=== PATIENT | female | born 1945 | race Caucasian/White ===

== ENCOUNTER → 2017-07-30 | Outpatient (CLI) | payer MEDICARE, BC ==
[2015-03-08 15:53] VITALS: BP 132/55
[~2017-07-30] MED LIST: ASPI-482 PO; DIVA500T2 PO; LEVO50TA5 PO; LINA5TAB4 PO; MELO15TA6 PO; OLME20TA19 PO; OMEG500C PO; OXYB10TA PO; OXYC-323 PO; RALO60TA PO; SIMV20TA3 PO
--- NOTE | 2017-07-30 10:57 | RAD ---
Bone densitometry scan, 07/30/2017: History: Osteopenia, postmenopausal evaluation The lumbar spine and right hip were examined utilizing a DEXA technique. The bone mineral density in the lumbar spine as measured from the L1-L4 levels is 1.26 g/sq cm. This yields a T score of 0.7 which is in the normal range. The total T score at the right hip is 0.8, which is also in the normal range. IMPRESSION: Normal bone mineral density measurements.
== END | disposition home or self-care (01) ==
LOC: DXRAD 09:48
PROVIDERS: ATTEND Obstetrics & Gynecology
DX: Z78.0 Asymptomatic menopausal state (principal); M85.80 Other specified disorders of bone density and structure, unspecified site
CPT/HCPCS: 77080

== ENCOUNTER → 2019-02-03 | Outpatient (CLI) | payer MEDICARE, BC ==
[2015-03-08 15:53] VITALS: BP 132/55
[~2019-02-03] MED LIST changes: +OLME20TA17 PO; -OLME20TA19 PO; -OXYC-323 PO; +OXYC1TAB15 PO
--- NOTE | 2019-02-03 14:33 | RAD ---
DATE: 02/03/2019 EXAM: MAMMO SCREENING BILATERAL HISTORY: Routine screening COMPARISON: 10/31/2016 This study was interpreted with the benefit of Computerized Aided Detection (CAD). Breast Density: FATTY The breast parenchyma is primarily fatty replaced. Breast parenchyma level density A. FINDINGS: There are several rim-like opacities in the medial left breast compatible with benign oil cysts. No suspicious breast densities or architectural distortion is seen. Benign type calcifications are present in both breasts. No suspicious microcalcifications have developed. Benign-appearing lymph node type densities are present in the axillary regions. IMPRESSION: There is no mammographic evidence of malignancy in either breast. BI-RADS CATEGORY: 2 BENIGN FINDING(S) RECOMMENDED FOLLOW-UP: 12M 12 MONTH FOLLOW-UP PQRS compliance statement: Patient information was entered into a reminder system with a target due date for the next mammogram. Mammography is a sensitive method for finding small breast cancers, but it does not detect them all and is not a substitute for careful clinical examination. A negative mammogram does not negate a clinically suspicious finding and should not result in delay in biopsying a clinically suspicious abnormality. "Our facility is accredited by the [employer] Mammography Program."
== END | disposition home or self-care (01) ==
LOC: MAMMO 08:58
PROVIDERS: ATTEND Obstetrics & Gynecology
DX: Z12.31 Encounter for screening mammogram for malignant neoplasm of breast (principal); N64.89 Other specified disorders of breast
CPT/HCPCS: 77063; 77067

== ENCOUNTER 2019-12-20 23:15 | Emergency (ER) | payer MEDICARE, BC ==
[~2019-12-20] VITALS: Ht 162.6 cm; Wt 86.0 kg
[~2019-12-20 23:15] MED LIST changes: -OXYB10TA PO; +OXYB10TA26 PO; +SIMV20TA18 PO; -SIMV20TA3 PO
--- NOTE | 2019-12-20 23:58 | PHYS DOC ---
Past History Past Medical History: Diabetes, High Cholesterol, Hypothyroid, Other Additional Past Medical Histor: CHOLECYSITIS Past Surgical History: No Surgical History Alcohol Use: None General Adult EDM: Chief Complaint: MECHANICAL FALL HPI: HPI: Patient is a 74-year-old female who presented to ER today for evaluation of low back pain after she fell in her bedroom this evening. Patient says she was walking into her bedroom getting ready for sleep when she lost her balance and fell down on her buttock, having lower back pain. Patient denies any pelvic pain, no lower extremity pain, no upper back pain, no neck pain, no headache. Patient denied hitting her head. Patient denies any chest pain, no trouble breathing, no nausea vomiting. Patient said when she was on the ground she could not get up herself. Patient is not on any blood thinner. Review of Systems: Review of Systems: Constitutional: Denies fever or chills Eyes: Denies change in visual acuity HENT: Denies nasal congestion or sore throat Respiratory: Denies cough or shortness of breath Cardiovascular: Denies chest pain or edema GI: Denies abdominal pain, nausea, vomiting, bloody stools or diarrhea : Denies dysuria Musculoskeletal: Positive for lower back pain, no joint pain Integument: Denies rash Neurologic: Denies headache, focal weakness or sensory changes Endocrine: Denies polyuria or polydipsia Lymphatic: Denies swollen glands Psychiatric: Denies depression or anxiety Heart Score: Risk Factors: Risk Factors: DM, Current or recent (<one month) smoker, HTN, HLP, family history of CAD, obesity. Risk Scores: Score 0 - 3: 2.5% MACE over next 6 weeks - Discharge Home Score 4 - 6: 20.3% MACE over next 6 weeks - Admit for Clinical Observation Score 7 - 10: 72.7% MACE over next 6 weeks - Early Invasive Strategies Allergies: Allergies: Allergies Coded Allergies Type Severity Reaction Last Updated Verified Penicillins Allergy Intermediate Rash 03/08/15 Yes Physical Exam: PE: Constitutional: Well developed, well nourished, no acute distress, non-toxic appearance. [] HENT: Normocephalic, atraumatic, bilateral external ears normal, oropharynx moist, no oral exudates, nose normal. [] Eyes: PERRLA, EOMI, conjunctiva normal, no discharge. [] Neck: Normal range of motion, no tenderness, supple, no stridor. [] Cardiovascular:Heart rate regular rhythm, no murmur [] Lungs & Thorax: Bilateral breath sounds clear to auscultation [] Abdomen: Bowel sounds normal, soft, no tenderness, no masses, no pulsatile shawn s. [] Skin: Warm, dry, no erythema, no rash. [] Back: There is tenderness to palpation in lumbar area L3/L4 AREA, no CVA tenderness. [] Extremities: No tenderness, no cyanosis, no clubbing, ROM intact, no edema. [] Neurologic: Alert and oriented X 3, normal motor function, normal sensory function, no focal deficits noted. Patient can move all of her extremities without any problem. Psychologic: Affect normal, judgement normal, mood normal. [] Current Patient Data: Vital Signs: Vital Signs Date Time Temp Pulse Resp B/P (MAP) Pulse Ox O2 Delivery O2 Flow Rate FiO2 12/20/19 23:33 98.6 105 18 98/51 (67) 96 Room Air EKG: EKG: [] Radiology/Procedures: Radiology/Procedures: xray of lumbar spine and pelvic xray: no fracture, no dislocation.[] Course & Med Decision Making: Course & Med Decision Making Pertinent Labs and Imaging studies reviewed. (See chart for details) [] Dragon Disclaimer: Dragon Disclaimer: This electronic medical record was generated, in whole or in part, using a voice recognition dictation system. Departure Departure: Impression: Primary Impression: Back pain due to injury Disposition: HOME, SELF-CARE Condition: STABLE Referrals: JESSICA PEOPLES MD (PCP) follow up with your doctor this week as needed for pain. Patient Instructions: Back Pain, Adult JESSICA SHAW DO Dec 20, 2019 23:58
[2019-12-21 00:09] VITALS: BP 120/33
--- NOTE | 2019-12-21 02:10 | RAD ---
Study: 1. CR LUMBAR SPINE 2-3V 2. CR PELVIS Indication: Fall. Lower back pain. Pelvic pain. Comparison: CT abdomen/pelvis 02/16/2015. Lumbar spine MRI 08/06/2018 Findings: Lumbar spine: Mild levocurvature with the apex at L3. 5 nonrib-bearing lumbar vertebral elements. No change in vertebral body height. There is again grade 1 anterolisthesis of L4 on L5. Multilevel facet degeneration appearing greatest at L3-L4 and L4-L5. Mild disc space narrowing lateralized to the right at L3-L4 and lateralized to the left at L4-L5 and also seen at a few additional levels as well. Vascular calcifications. Right upper quadrant surgical clips. Pelvis: Hip alignment is maintained as is alignment across the pubic symphysis and sacroiliac joints. No displaced fracture seen at the proximal femurs or throughout the pelvis. The adequately assessed sacral arcuate lines are continuous. No advanced hip arthrosis. Impression: 1. No acute fracture seen to involve the lumbar spine or pelvis. Hip alignment is maintained. 2. Multilevel lumbar spine degenerative changes that appear most pronounced at L3-L4 and L4-L5. Electronically signed by: FRANCESCA ROMERO MD (12/21/2019 2:07 AM) [id number]
[2019-12-22] MEDS ORDERED: ALLO300T PO (02:09)
[2019-12-22] MEDS ORDERED: GLIP10TA13 PO (02:09)
[2019-12-22] MEDS ORDERED: FEBU40TA PO (02:09)
[2019-12-22] MEDS ORDERED: ATOR40TA59 PO (02:09)
[2019-12-22] MEDS ORDERED: LINA5TAB4 PO (02:55)
== END 2019-12-21 00:30 | disposition home or self-care (01) ==
LOC: ER 23:15
DX: S39.92XA Unspecified injury of lower back, initial encounter (principal); E11.9 Type 2 diabetes mellitus without complications; E78.00 Pure hypercholesterolemia, unspecified; E03.9 Hypothyroidism, unspecified; Z88.0 Allergy status to penicillin; W18.39XA Other fall on same level, initial encounter; Y93.01 Activity, walking, marching and hiking; Y92.89 Other specified places as the place of occurrence of the external cause; Y99.8 Other external cause status
CPT/HCPCS: 72100; 72170; 99284

== ENCOUNTER 2019-12-21 22:18 | Inpatient (IN) | payer MEDICARE, BC ==
[~2019-12-21] VITALS: Ht 162.6 cm; Wt 87.0 kg
--- NOTE | 2019-12-21 22:40 | EKG ---
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
[2019-12-21] MEDS ORDERED: IV NORMAL SALINE 1,000ML 1,000 ML IV ONE (23:15)
--- NOTE | 2019-12-21 23:19 | PHYS DOC ---
Past History Past Medical History: Diabetes, High Cholesterol, Hypothyroid, Other Additional Past Medical Histor: CHOLECYSITIS Past Surgical History: No Surgical History Alcohol Use: None General Adult EDM: Chief Complaint: FEVER HPI: HPI: 74-year-old female presents via EMS with fever, cough, and diarrhea. EMS was using COVID-19 precautions. The patient was seen in this facility yesterday for a fall at home. She was discharged without significant injury. Today she presents with a fever of 101 at home. She is also developed a cough and mild shortness of breath. The patient does not usually use oxygen. The patient has been less alert and able to answer questions than she was yesterday. Most history was obtained from EMS reports and what her spouse told them. She became less lucid throughout the day and had a cough. He noticed that she was running a fever and called EMS. Review of Systems: Review of Systems: Constitutional: Fever Eyes: Denies change in visual acuity HENT: Denies nasal congestion or sore throat Respiratory: Cough with shortness of breath Cardiovascular: Denies chest pain or edema GI: Diarrhea. Denies abdominal pain, nausea, vomiting, bloody stools. : Denies dysuria Musculoskeletal: Denies back pain or joint pain Integument: Denies rash Neurologic: Denies headache, focal weakness or sensory changes Endocrine: Denies polyuria or polydipsia Lymphatic: Denies swollen glands Psychiatric: Denies depression or anxiety Heart Score: Risk Factors: Risk Factors: DM, Current or recent (<one month) smoker, HTN, HLP, family history of CAD, obesity. Risk Scores: Score 0 - 3: 2.5% MACE over next 6 weeks - Discharge Home Score 4 - 6: 20.3% MACE over next 6 weeks - Admit for Clinical Observation Score 7 - 10: 72.7% MACE over next 6 weeks - Early Invasive Strategies Current Medications: Current Meds: Current Medications Medications (Trade) Dose Ordered Sig/Mayte Start Time Stop Time Status Last Admin Dose Admin Acetaminophen (Tylenol) 1,000 mg 1X ONCE 12/21/19 23:30 12/21/19 23:31 Sodium Chloride 1,000 ml @ 1,000 mls/hr 1X ONCE 12/21/19 23:15 12/22/19 00:14 UNV Allergies: Allergies: Allergies Coded Allergies Type Severity Reaction Last Updated Verified Penicillins Allergy Intermediate Rash 03/08/15 Yes Physical Exam: PE: Constitutional: Well developed, well nourished, no acute distress, non-toxic appearance. [] HENT: Normocephalic, atraumatic, bilateral external ears normal, oropharynx moist, no oral exudates, nose normal. [] Eyes: PERRLA, EOMI, conjunctiva normal, no discharge. [] Neck: Normal range of motion, no tenderness, supple, no stridor. [] Cardiovascular:Heart rate regular rhythm, no murmur [] Lungs & Thorax: Bilateral breath sounds clear to auscultation [] Abdomen: Bowel sounds normal, soft, no tenderness, no masses, no pulsatile masses. [] Skin: Warm, dry, no erythema, no rash. [] Back: No tenderness, no CVA tenderness. [] Extremities: No tenderness, no cyanosis, no clubbing, ROM intact, no edema. [] Neurologic: Alert and oriented X 3, normal motor function, normal sensory function, no focal deficits noted. [] Psychologic: Affect normal, judgement normal, mood normal. [] Current Patient Data: Vital Signs: Vital Signs Date Time Temp Pulse Resp B/P (MAP) Pulse Ox O2 Delivery O2 Flow Rate FiO2 12/21/19 22:20 103.1 107 18 135/64 (87) 94 Room Air EKG: EKG: Sinus tachycardia, rate 104, normal axis, no ST elevations or depressions. [] Radiology/Procedures: Radiology/Procedures: [] Impressions: Study: CR CHEST AP ONLY Indication: Fever and cough. Comparison: None. Findings: Low lung volumes. Retrocardiac haziness on the left could be secondary to atelectasis. No large effusion. No pneumothorax. Apparent prominence of the cardiomediastinal silhouette is likely in part related to AP technique and low lung volumes. Impression: Retrocardiac haziness at the basilar left lower lung is nonspecific but could represent atelectasis given low lung volumes. Electronically signed by: FRANCESCA ROMERO MD (12/21/2019 11:52 PM) [id number] DICTATED AND SIGNED BY: FRANCESCA ROMERO MD DATE: 12/21/19 2352 CC: ROSA MARIA CUEVA DO; JESSICA PEOPLES MD ~ Course & Med Decision Making: Course & Med Decision Making Pertinent Labs and Imaging studies reviewed. (See chart for details) On arrival, the patient was satting 92% on room air for EMS. She had a fever of 103. She is alert and oriented to person and time, but not place. She was not able to provide a history to the nurse. We have started a liter normal saline, will not do the full 30 mL/kg at this time as COVID-19 is a probable diagnosis. Once work-up to our monitors, patient's oxygen saturation is 94-96% on room air. Her heart rate is 104. The patient's labs are significant for blood sugar greater than 200, creatinine 2.2 with no previous for comparison, lactic acid 2.7. Troponin is negative. White count is normal. The patient's d-dimer is elevated at 3.77. I would order CT a of the chest, but her GFR is 21. I will leave this decision up to the hospitalist and whether or not a VQ scan would be more appropriate. Given this is possible COVID-19 and I am worried about the potential for coagulation issues, I will give her a standard dose of Lovenox 40 mg. I will admit the patient to the hospital. I spoke with Dr. Peoples about the patient and he has agreed to admission. 64 minutes of critical care time was spent on this patient exclusive of other billable procedures. This includes but is not limited to respiratory droplet precautions, lab review, radiology review, consultations, medication management. Concern for COVID 19 [] Dragon Disclaimer: Dragon Disclaimer: This electronic medical record was generated, in whole or in part, using a voice recognition dictation system. Departure Departure: Impression: Primary Impression: Suspected COVID-19 virus infection Additional Impressions: Fever Qualified Codes: R50.9 - Fever, unspecified Elevated d-dimer Disposition: ADMITTED INPATIENT Admitting Physician: Jessica Peoples Condition: GUARDED Referrals: JESSICA PEOPLES MD (PCP) ROSA MARIA CUEVA DO Dec 21, 2019 23:19
[2019-12-21 23:22] LABS: BASO % 0 % (0-3); EOS % 0 % (0-3); HEMATOCRIT 40.8 % (36.0-47.0); HEMOGLOBIN 13.4 g/dL (12.0-15.5); LYMPH # 0.2 x10^3/uL (1.0-4.8); LYMPH % 4 % (24-48); MEAN CORPUSCULAR HEMOGLOBIN 28 pg (25-35); MEAN CORPUSCULAR HGB CONC 33 g/dL (31-37); MEAN CORPUSCULAR VOLUME 86 fL (79-100); MONO # 0.2 x10^3/uL (0.0-1.1); MONO % 4 % (0-9); NEUT # 4.6 x10^3uL (1.8-7.7); NEUT % 92 % (31-73); PLATELET COUNT 95 x10^3/uL (140-400); RED BLOOD COUNT 4.77 x10^6/uL (3.50-5.40); RED CELL DISTRIBUTION WIDTH 15.5 % (11.5-14.5)
[2019-12-21 23:26] LABS: CALCIUM 8.6 mg/dL (8.5-10.1); CREATININE 2.2 mg/dL (0.6-1.0); GFR 21.9
[2019-12-21] MEDS ORDERED: ACETAMINOPHEN 500 MG TABLET PO ONE (23:30)
[2019-12-21 23:32] LABS: ALBUMIN/GLOBULIN RATIO 0.9 (1.0-1.7); TOTAL BILIRUBIN 0.7 mg/dL (0.2-1.0); TOTAL PROTEIN 6.3 g/dL (6.4-8.2)
--- NOTE | 2019-12-21 23:55 | RAD ---
Study: CR CHEST AP ONLY Indication: Fever and cough. Comparison: None. Findings: Low lung volumes. Retrocardiac haziness on the left could be secondary to atelectasis. No large effusion. No pneumothorax. Apparent prominence of the cardiomediastinal silhouette is likely in part related to AP technique and low lung volumes. Impression: Retrocardiac haziness at the basilar left lower lung is nonspecific but could represent atelectasis given low lung volumes. Electronically signed by: FRANCESCA ROMERO MD (12/21/2019 11:52 PM) [id number]
[2019-12-22] VITALS (12 sets, daily range): BP systolic 88–119; BP diastolic 50–70
[2019-12-22 00:10] LABS: CLARITY,URINE CLEAR; COLOR,URINE YELLOW
[2019-12-22 00:11] LABS: BACTERIA,URINE 0 /HPF (0-FEW); BILIRUBIN,URINE NEG (NEG); GLUCOSE,URINE NEG (NEG); NITRITE,URINE NEG (NEG); RBC,URINE 0 /HPF (0-2); SQUAMOUS EPITHELIAL CELL,UR FEW /LPF; UROBILINOGEN,URINE 0.2 mg/dL (0.2 mg/dL); WBC,URINE OCC /HPF (0-4)
[2019-12-22] MEDS ORDERED: ENOXAPARIN 40 MG/0.4 ML SYRINGE. SQ ONE (00:30)
[2019-12-22] MEDS ORDERED: ONDANSETRON PF 4 MG/2 ML VIAL. IVP PRN (01:00)
[2019-12-22] MEDS ORDERED: GLIP10TA13 PO (02:09)
[2019-12-22] MEDS ORDERED: ATOR40TA59 PO (02:09)
[2019-12-22] MEDS ORDERED: ALLO300T PO (02:09)
[2019-12-22] MEDS ORDERED: FEBU40TA PO (02:09)
[2019-12-22] MEDS ORDERED: LINA5TAB4 PO (02:55)
[2019-12-22] MEDS: ACETAMINOPHEN 325 MG TABLET PO PRN ×2 (08:17→16:36)
[2019-12-22 09:10] LABS: BASO # 0.1 x10^3/uL (0.0-0.2); BASO % 1 % (0-3); EOS % 0 % (0-3); HEMATOCRIT 39.1 % (36.0-47.0); HEMOGLOBIN 12.9 g/dL (12.0-15.5); LYMPH # 0.4 x10^3/uL (1.0-4.8); LYMPH % 7 % (24-48); MEAN CORPUSCULAR HEMOGLOBIN 28 pg (25-35); MEAN CORPUSCULAR HGB CONC 33 g/dL (31-37); MEAN CORPUSCULAR VOLUME 84 fL (79-100); MONO # 0.3 x10^3/uL (0.0-1.1); MONO % 5 % (0-9); NEUT # 5.2 x10^3uL (1.8-7.7); NEUT % 87 % (31-73); PLATELET COUNT 81 x10^3/uL (140-400); RED BLOOD COUNT 4.65 x10^6/uL (3.50-5.40); RED CELL DISTRIBUTION WIDTH 15.5 % (11.5-14.5); WHITE BLOOD COUNT 5.9 x10^3/uL (4.0-11.0)
[2019-12-22 09:23] LABS: ALBUMIN 2.6 g/dL (3.4-5.0); ALBUMIN/GLOBULIN RATIO 0.7 (1.0-1.7); CALCIUM 8.4 mg/dL (8.5-10.1); CREATININE 1.6 mg/dL (0.6-1.0); GFR 31.6; POTASSIUM 3.9 mmol/L (3.5-5.1); TOTAL BILIRUBIN 0.8 mg/dL (0.2-1.0); TOTAL PROTEIN 6.3 g/dL (6.4-8.2)
[2019-12-22] MEDS ORDERED: ENOXAPARIN 40 MG/0.4 ML SYRINGE. SQ SCH (09:30)
[2019-12-22] MEDS: IV NORMAL SALINE 1,000ML 1,000 ML IV SCH ×3 (09:34→20:27)
[2019-12-22] MEDS: LINAGLIPTIN 5 MG TABLET PO SCH (10:00)
[2019-12-22] MEDS: LEVOTHYROXINE 50 MCG TABLET PO SCH (10:32)
[2019-12-22 11:22] LABS: INFLUENZA A PATIENT NEGATIVE (NEGATIVE); INFLUENZA B PATIENT NEGATIVE (NEGATIVE)
--- NOTE | 2019-12-22 11:25 | RAD ---
EXAM: CT Chest without IV contrast INDICATION: Right lower lobe crackles. Atypical pneumonia is suspected. Renal insufficiency. TECHNIQUE: Multi-detector row CT images were acquired from the thoracic inlet through the upper abdomen without the use of IV contrast. Sagittal and coronal images were acquired from the transaxial data. All CT scans performed at this facility utilize dose optimization techniques as appropriate to the exam, including the following: Automated exposure control and adjustment of the mA and/or KV according to patient size (this includes techniques or standardized protocols for targeted exams where dose is indication/reason for exam). COMPARISON: 12/21/2019 chest x-ray FINDINGS: Respiratory motion artifact degrades detail. The absence of IV contrast also limits evaluation of soft tissue pathology. CARDIOVASCULAR: Unremarkable MEDIASTINUM & EMILY: Mild mediastinal adenopathy as evidenced by precarinal 1.4 cm short axis lymph node. LUNGS: Lungs are hypoventilatory and show a mosaic attenuation best appreciated in the right upper lobe. PLEURAL SPACE: No pleural effusions or pneumothorax. OSSEOUS & SOFT TISSUE: Unremarkable ABDOMEN: The visualized portions of the upper abdomen are unremarkable. IMPRESSION: Hypoventilatory chest with respiratory motion that degrades detail but no parenchymal consolidation or clear evidence of an acute infectious process. Recommend clinical correlation and consideration of follow-up. Presence of mosaic attenuation in the lungs could reflect small airways disease. Atypical pneumonia is not excluded based on these imaging findings. Electronically signed by: Catherine Partida MD (12/22/2019 11:22 AM) [id number]
[2019-12-22] MEDS: CEFEPIME HCL 1 GM in IV NORMAL SALINE 50ML 50 ML IV SCH ×2 (13:09→21:52)
[2019-12-22] MEDS: DIVALPROEX SODIUM 250 MG TABLET.DR. PO SCH (20:28)
[2019-12-22] MEDS: IBUPROFEN 200 MG TABLET PO PRN (20:28)
[2019-12-23] VITALS (11 sets, daily range): BP systolic 95–133; BP diastolic 49–65
[2019-12-23] MEDS: IV NORMAL SALINE 1,000ML 1,000 ML IV SCH ×3 (00:30→07:41)
[2019-12-23] MEDS ORDERED: ACETAMINOPHEN 325 MG TABLET PO ONE (01:17)
[2019-12-23] MEDS: ACETAMINOPHEN 325 MG TABLET PO PRN ×3 (01:30→22:43)
[2019-12-23] MEDS: CEFEPIME HCL 1 GM in IV NORMAL SALINE 50ML 50 ML IV SCH (05:33)
[2019-12-23] MEDS: LEVOTHYROXINE 50 MCG TABLET PO SCH (05:34)
[2019-12-23 06:12] LABS: BASO % 0 % (0-3); EOS % 0 % (0-3); HEMATOCRIT 35.3 % (36.0-47.0); HEMOGLOBIN 11.6 g/dL (12.0-15.5); LYMPH # 0.4 x10^3/uL (1.0-4.8); LYMPH % 10 % (24-48); MEAN CORPUSCULAR HEMOGLOBIN 28 pg (25-35); MEAN CORPUSCULAR HGB CONC 33 g/dL (31-37); MEAN CORPUSCULAR VOLUME 84 fL (79-100); MONO # 0.2 x10^3/uL (0.0-1.1); MONO % 4 % (0-9); NEUT # 3.8 x10^3uL (1.8-7.7); NEUT % 86 % (31-73); PLATELET COUNT 56 x10^3/uL (140-400); RED BLOOD COUNT 4.18 x10^6/uL (3.50-5.40); RED CELL DISTRIBUTION WIDTH 15.2 % (11.5-14.5); WHITE BLOOD COUNT 4.4 x10^3/uL (4.0-11.0)
[2019-12-23 06:20] LABS: CALCIUM 7.8 mg/dL (8.5-10.1); CREATININE 1.2 mg/dL (0.6-1.0); POTASSIUM 3.9 mmol/L (3.5-5.1)
[2019-12-23] MEDS: LINAGLIPTIN 5 MG TABLET PO SCH (07:41)
[2019-12-23] MEDS ORDERED: CONTRAST GIVEN MC PRN (08:00)
[2019-12-23] MEDS ORDERED: IOHEXOL 350 MG/ML 100 ML VIAL. IV ONE (08:15)
--- NOTE | 2019-12-23 09:20 | RAD ---
CTA chest abdomen and pelvis with contrast: History: Worsening dyspnea and febrile Axial helical images of the chest abdomen and pelvis were obtained after the administration of 100 cc IV Isovue-370 contrast. Timing is appropriate for arterial evaluation and multiplanar reconstruction was performed on a separate imaging workstation including 3-D maximum intensity. Imaging as well as 3-D arterial surface rendering. Comparison: none CTA OF THE CHEST WITH IV CONTRAST: The thoracic aorta appears normal. The left common carotid artery arises from a common trunk with the brachiocephalic artery. There are a few small mediastinal hilar lymph nodes. There are tiny pleural effusions. There is minimal perihilar groundglass opacities. There is no filling defects in the pulmonary arteries to suggest PE. Impression: 1. Minimal perihilar groundglass opacities is nonspecific and can be pneumonitis or discoid atelectasis. 2. Mild lymphadenopathy likely reactive. 3. Normal thoracic aorta. 4. Mild pleural effusions. End Impression CTA OF THE ABDOMEN AND PELVIS WITH IV CONTRAST: COMPARISON: February 16, 2015 The aorta and great vessels appear normal. There has been prior cholecystectomy. The appendix is not well seen but appears normal. There is a low-density lesion in the right adnexa that measures 5.3 x 4.3 cm. The uterus appears within normal limits. The left ovary is not well seen. Liver: Unremarkable Spleen: Unremarkable Pancreas: Unremarkable Adrenal Glands: Unremarkable Kidneys: Unremarkable Evaluation of stomach and bowel is limited without oral contrast. Lymphadenopathy: no. Free fluid: no. Free air: no. The bladder is collapsed around a [place] and not well evaluated. Impression: Right adnexal lesion is most likely related to the right ovary. This could be a neoplasm. Correlation with CA-125 and follow-up ultrasound as an outpatient. End impression PQRS Compliance Statement: One or more of the following individualized dose reduction techniques were utilized for this examination: 1. Automated exposure control 2. Adjustment of the mA and/or kV according to patient size 3. Use of iterative reconstruction technique Electronically signed by: Enrique Ellsworth III, MD (12/23/2019 9:17 AM) [id number]
[2019-12-23] MEDS: HYDROXYCHLOROQUINE (PROGRAM) 200 MG TABLET PO SCH ×2 (10:53→20:12)
[2019-12-23] MEDS ORDERED: AZITHROMYCIN 250 MG TABLET. PO ONE (11:00)
--- NOTE | 2019-12-23 15:11 | PN ---
DATE: SUBJECTIVE: A 74-year-old female admitted with sepsis. The patient had elevated temperatures up to 103 degrees. She has become basically afebrile, though at times runs a low-grade temperature up to 99. She has been on IV antibiotics, cefepime and Levaquin, but her x-ray or CT scan demonstrated ground glass appearance. A COVID-19 test is pending. We were looking for trying her on Plaquenil. She is on constant monitoring and considering she is still very weak and because of her other risk factors, we will go ahead and patient has agreed to give it a try to help her recover quicker. Her vital signs this morning are much improved. OBJECTIVE: VITAL SIGNS: Her blood pressure did drop yesterday to 96/59, one report later on was 88/50 (NC). In any case, her blood pressure this morning is up to 120/60, respiratory rate 22, pulse 87, temperature 98.5, oxygen saturation good. GENERAL: The patient still feels weak. The patient has poor taste. LUNGS: Diminished primarily in the bases, but basically diminished throughout. CARDIOVASCULAR: Regular sinus rhythm. ABDOMEN: Protuberant, soft. EXTREMITIES: No clubbing, cyanosis or edema. NEUROLOGIC: Intact. LABORATORY DATA: Otherwise, her labs look basically stable except for the platelets, which again show a slight deterioration down to 56,000. Her renal function has markedly improved showing the degree of dehydration. Her creatinine went from 2.2 down to 1.2. Her GFR now is up at 44. Her procalcitonin was elevated at 1.9 and shows close to a very high risk for sepsis, which we have already taking into account as well as continued IV antibiotic therapy on her. Still awaiting the COVID-19 report and will make further evaluation once those are received. She is on the azithromycin presently, she has been on Levaquin and cefepime, which seemed to help her somewhat, but her platelet count still continued to drop, so we will discontinue that. IMPRESSION: Sepsis, pneumonia of unknown etiology, possible SIRS, thrombocytopenia, morbid obesity, acute on top of chronic renal failure. PLAN: Continue to monitor the patient accordingly, make further evaluation on her as indicated per those results. We will continue on the IV Zithromax, try the Plaquenil since she has ground glass appearance, see if this does not help regain her recovery or increase her recovery speed. She is on constant monitoring and EKGs have been done and we will continue to monitor her on these issues as well. JESSICA PEOPLES MD DR: KEY/flex JOB#: [id number] / [id number]
[2019-12-23] MEDS ORDERED: CEFEPIME HCL 1 GM in IV NORMAL SALINE 50ML 50 ML IV SCH (18:00)
[2019-12-23] MEDS: DIVALPROEX SODIUM 250 MG TABLET.DR. PO SCH (20:12)
[2019-12-23] MEDS: LACTOBACILLUS RHAMNOSUS GG 1 CAPSULE. PO SCH (20:12)
--- NOTE | 2019-12-23 23:01 | EKG ---
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
[2019-12-24 00:37] VITALS: BP 99/48
[2019-12-24] MEDS: LEVOTHYROXINE 50 MCG TABLET PO SCH (05:19)
[2019-12-24 06:13] VITALS: BP 106/50
[2019-12-24 06:19] LABS: BASO % 1 % (0-3); EOS % 0 % (0-3); HEMATOCRIT 34.4 % (36.0-47.0); HEMOGLOBIN 11.4 g/dL (12.0-15.5); LYMPH # 0.8 x10^3/uL (1.0-4.8); LYMPH % 23 % (24-48); MEAN CORPUSCULAR HEMOGLOBIN 28 pg (25-35); MEAN CORPUSCULAR HGB CONC 33 g/dL (31-37); MEAN CORPUSCULAR VOLUME 84 fL (79-100); MONO # 0.3 x10^3/uL (0.0-1.1); MONO % 8 % (0-9); NEUT # 2.4 x10^3uL (1.8-7.7); NEUT % 68 % (31-73); PLATELET COUNT 62 x10^3/uL (140-400); RED CELL DISTRIBUTION WIDTH 15.3 % (11.5-14.5); WHITE BLOOD COUNT 3.6 x10^3/uL (4.0-11.0)
[2019-12-24 06:32] LABS: ALBUMIN/GLOBULIN RATIO 0.6 (1.0-1.7); CALCIUM 8.2 mg/dL (8.5-10.1); CREATININE 1.1 mg/dL (0.6-1.0); GFR 48.7; TOTAL BILIRUBIN 0.5 mg/dL (0.2-1.0); TOTAL PROTEIN 5.4 g/dL (6.4-8.2)
[2019-12-24] MEDS: LINAGLIPTIN 5 MG TABLET PO SCH (07:46)
[2019-12-24] MEDS ORDERED: AZITHROMYCIN 250 MG TABLET. PO SCH (09:00)
[2019-12-24] MEDS ORDERED: HYDROXYCHLOROQUINE (PROGRAM) 200 MG TABLET PO SCH (09:00)
[2019-12-24] MEDS: LACTOBACILLUS RHAMNOSUS GG 1 CAPSULE. PO SCH ×2 (09:55→20:41)
[2019-12-24 16:00] VITALS: BP 115/73
[2019-12-24] MEDS: ACETAMINOPHEN 325 MG TABLET PO PRN (17:05)
[2019-12-24 19:30] VITALS: BP 122/65
[2019-12-24] MEDS: DIVALPROEX SODIUM 250 MG TABLET.DR. PO SCH (20:41)
[2019-12-24] MEDS ORDERED: levoFLOXacin PER PHARMACY 1 EACH. MC PRN (20:45)
[2019-12-24 22:10] VITALS: BP 111/58
[2019-12-24] MEDS ORDERED: levoFLOXacin 500 MG TABLET PO ONE (23:00)
--- NOTE | 2019-12-24 23:54 | PN ---
DATE: SUBJECTIVE: A 74-year-old in with sepsis. The patient is resting fairly comfortably, making fairly good progress, still very weak, had spiked one temperature up to 101.5 late last night and again this afternoon (NC). OBJECTIVE: VITAL SIGNS: The patient's blood pressure 115/73, respiratory rate 20, pulse 70. The patient is febrile presently (NC). GENERAL: Otherwise, is alert and oriented. LUNGS: Diminished, but basically clear. CARDIOVASCULAR: Regular sinus rhythm. ABDOMEN: Soft, nontender. EXTREMITIES: No clubbing, cyanosis, nor edema. NEUROLOGIC: Stable. We will go ahead and continue to monitor the patient accordingly. We will add a second antibiotic to her protocol and see if this does not help her with that fever. LABORATORY DATA: Basically, COVID report is not in the chart. Blood sugars are stable. Urine unremarkable. CT abdomen and pelvis just showed some minimal ground glass opacities in the bases consistent with possible pneumonitis. IMPRESSION: Sepsis, pneumonitis, pneumonia, unknown etiology, possible systemic inflammatory response syndrome, thrombocytopenia, morbid obesity, acute on top of chronic renal failure. JESSICA PEOPLES MD DR: KEY/flex JOB#: [id number] / [id number]
[2019-12-25 05:50] VITALS: BP_SYST 115; BP_SYST 55; BP_DIAS 58
[2019-12-25] MEDS: LEVOTHYROXINE 50 MCG TABLET PO SCH (05:50)
[2019-12-25 06:24] LABS: BASO % 1 % (0-3); EOS % 0 % (0-3); HEMATOCRIT 37.2 % (36.0-47.0); HEMOGLOBIN 11.7 g/dL (12.0-15.5); LYMPH # 1.2 x10^3/uL (1.0-4.8); LYMPH % 27 % (24-48); MEAN CORPUSCULAR HEMOGLOBIN 28 pg (25-35); MEAN CORPUSCULAR HGB CONC 32 g/dL (31-37); MEAN CORPUSCULAR VOLUME 89 fL (79-100); MONO # 0.4 x10^3/uL (0.0-1.1); MONO % 9 % (0-9); NEUT # 2.8 x10^3uL (1.8-7.7); NEUT % 64 % (31-73); PLATELET COUNT 67 x10^3/uL (140-400); RED BLOOD COUNT 4.19 x10^6/uL (3.50-5.40); RED CELL DISTRIBUTION WIDTH 16.3 % (11.5-14.5); WHITE BLOOD COUNT 4.5 x10^3/uL (4.0-11.0)
[2019-12-25 08:00] VITALS: BP 123/63
[2019-12-25] MEDS: LACTOBACILLUS RHAMNOSUS GG 1 CAPSULE. PO SCH ×2 (08:19→22:12)
[2019-12-25] MEDS: LINAGLIPTIN 5 MG TABLET PO SCH (08:19)
[2019-12-25 08:22] LABS: ALBUMIN 2.2 g/dL (3.4-5.0); ALBUMIN/GLOBULIN RATIO 0.7 (1.0-1.7); CALCIUM 8.8 mg/dL (8.5-10.1); GFR 54.3; POTASSIUM 4.3 mmol/L (3.5-5.1); TOTAL BILIRUBIN 0.5 mg/dL (0.2-1.0); TOTAL PROTEIN 5.3 g/dL (6.4-8.2)
--- NOTE | 2019-12-25 10:42 | PN ---
DATE: SUBJECTIVE: In with sepsis, pneumonia. She has been negative for the COVID testing; however, she does have pneumonia, also marked thrombocytopenia, although no bleeding. The patient seems to be doing better. She did spike a temperature of 101.3 at about 4:00 yesterday afternoon. She has been afebrile since, we will continue to monitor on that. OBJECTIVE: VITAL SIGNS: Blood pressure 123/63, respiratory rate 63, afebrile. GENERAL: The patient is alert and oriented. The patient has not had any drops in her blood pressure like she did the other day, seems to have turned the corner. We will get her to the non-COVID side and continue to monitor her with PT, OT. Otherwise, as noted. LUNGS: Diminished, some decreased breath sounds in the bases, otherwise seems to be holding her own. CARDIOVASCULAR: Regular sinus rhythm. ABDOMEN: Soft, nontender. EXTREMITIES: No clubbing, cyanosis or edema. NEUROLOGIC: Alert, cheerful. Good affect. IMPRESSION: Sepsis, pneumonia of unknown etiology, thrombocytopenia, morbid obesity, acute on top of chronic renal failure, although she seems to have improved dramatically with hydration on that course; type 2 diabetes and vsysludi-ku-qetugu protein malnutrition. JESSICA PEOPLES MD DR: KEY/flex JOB#: [id number] / [id number]
[2019-12-25 12:00] VITALS: BP 115/68
[2019-12-25 15:16] VITALS: BP 102/66
[2019-12-25 20:58] VITALS: BP 124/71
[2019-12-25] MEDS: DIVALPROEX SODIUM 250 MG TABLET.DR. PO SCH (22:12)
[2019-12-25] MEDS ORDERED: levoFLOXacin 250 MG TABLET PO SCH (23:00)
[2019-12-25 23:12] VITALS: BP 112/66
[2019-12-26 05:34] VITALS: BP 109/67
[2019-12-26] MEDS: LEVOTHYROXINE 50 MCG TABLET PO SCH (06:17)
[2019-12-26] MEDS: IBUPROFEN 200 MG TABLET PO PRN (09:15)
[2019-12-26] MEDS: LINAGLIPTIN 5 MG TABLET PO SCH (09:15)
[2019-12-26] MEDS: LACTOBACILLUS RHAMNOSUS GG 1 CAPSULE. PO SCH (09:15)
[2019-12-26] MEDS ORDERED: BISACODYL 10 MG SUPP.RECT PR ONE (09:45)
[2019-12-26] MEDS ORDERED: LEVO500T59 PO (12:21)
[2019-12-26] MEDS ORDERED: CEFD300C PO (12:21)
--- NOTE | 2020-01-02 03:38 | DS ---
DATE OF DISCHARGE: 12/26/2019 HOSPITAL COURSE: This is a 74-year-old female who was admitted with multiple medical problems. She was septic. She had pneumonia of unknown etiology, possible sepsis with thrombocytopenia, morbid obesity. She had respiratory failure, severe weakness in her lower extremities, acute on top of chronic renal failure. The patient in turn was given aggressive pulmonary toilet. Albumin was low at 2.2. Her platelets were down to 56,000. Her D-dimer was as high as 3.77. CTA of the chest did show some perihilar ground glass opacities; however, there were no signs of pulmonary emboli. There was a low density lesion in the right adnexa, 5.3 cm. Needed to follow up with a CA-125. She was placed on IV antibiotic therapy. She made excellent progress during the rest of her hospitalization. Influenza A and B were negative. Strep pneumoniae was negative. COVID-19 was negative. She was running low-grade temperatures. She was discharged on oral antibiotics. She was seen as an outpatient and was afebrile at that time. Home meds, diet plan. She also had a history of gout. She will be followed up in the office for followup on her multiple medical problems. IMPRESSION: Sepsis, thrombocytopenia, pneumonia of unspecified etiology, acute on top of chronic renal failure, dehydration, type 2 diabetes, morbid obesity, gout, [id number] protein malnutrition. She will be on a diabetic diet, decreased activity. Followup in 4-7 days or sooner as needed. Phone number given. JESSICA PEOPLES MD DR: KEY/flex JOB#: [id number] / [id number]
== END 2019-12-26 13:27 | disposition home or self-care (01) | DRG 871 ==
LOC: ER 22:18 → 1 SOUTH 23:50
PROVIDERS: ADMIT Family Medicine; ATTEND Family Medicine
DX: A41.9 Sepsis, unspecified organism (principal); J18.9 Pneumonia, unspecified organism; E43 Unspecified severe protein-calorie malnutrition; D69.6 Thrombocytopenia, unspecified; E03.9 Hypothyroidism, unspecified; E11.22 Type 2 diabetes mellitus with diabetic chronic kidney disease; E66.01 Morbid (severe) obesity due to excess calories; E78.00 Pure hypercholesterolemia, unspecified; N18.9 Chronic kidney disease, unspecified; Z68.33 Body mass index [BMI] 33.0-33.9, adult; Z20.828 Contact with and (suspected) exposure to other viral communicable diseases
CPT/HCPCS: 36415; 71045; 71250; 71275; 74177; 80048; 80053; 81001; 82947; 83605; 84145; 84484; 85025; 85379; 85610; 85730; 87040; 87449; 87635; 87804; 93005; 96360; 96372; J0456; J0692; J0696; J1650; J1956; Q9967; 99291-25; J7030

== ENCOUNTER → 2019-12-28 | Outpatient (CLI) | payer MEDICARE, BC ==
[2019-12-26 05:34] VITALS: BP 109/67
[~2019-12-28] MED LIST changes: +ALLO300T PO; +ATOR40TA59 PO; +CEFD300C PO; +FEBU40TA PO; +GLIP10TA13 PO; +LEVO500T59 PO
[2019-12-28 16:59] LABS: BASO % 0 % (0-3); EOS # 0.1 x10^3/uL (0.0-0.7); EOS % 1 % (0-3); HEMATOCRIT 37.8 % (36.0-47.0); HEMOGLOBIN 12.5 g/dL (12.0-15.5); LYMPH # 1.6 x10^3/uL (1.0-4.8); LYMPH % 12 % (24-48); MEAN CORPUSCULAR HEMOGLOBIN 28 pg (25-35); MEAN CORPUSCULAR HGB CONC 33 g/dL (31-37); MEAN CORPUSCULAR VOLUME 84 fL (79-100); MONO # 1.2 x10^3/uL (0.0-1.1); MONO % 9 % (0-9); NEUT % 78 % (31-73); PLATELET COUNT 188 x10^3/uL (140-400); RED BLOOD COUNT 4.52 x10^6/uL (3.50-5.40); WHITE BLOOD COUNT 12.9 x10^3/uL (4.0-11.0)
[2019-12-28 17:07] LABS: CALCIUM 9.7 mg/dL (8.5-10.1); CREATININE 1.3 mg/dL (0.6-1.0); GFR 40.2; POTASSIUM 3.8 mmol/L (3.5-5.1); URIC ACID 5.4 mg/dL (2.6-6.0)
[2019-12-28 17:37] LABS: % BANDS 2 % (0-9); % EOS 1 % (0-5); % LYMPHS 14 % (24-48); % MONOS 5 % (0-10); % SEGS 78 % (35-66)
[2019-12-28 17:39] LABS: PLT ESTIMATE ADEQUATE (ADEQUATE)
== END | disposition home or self-care (01) ==
LOC: LAB 16:03
PROVIDERS: ATTEND Family Medicine
DX: D69.49 Other primary thrombocytopenia (principal)
CPT/HCPCS: 36415; 80048; 84550; 85007; 85025

== ENCOUNTER 2020-01-04 12:21 | Inpatient (IN) | payer MEDICARE, BC ==
[~2020-01-04] VITALS: Ht 162.6 cm; Wt 83.4 kg
--- NOTE | 2020-01-04 12:43 | PHYS DOC ---
Past History Past Medical History: Diabetes, High Cholesterol, Hypothyroid, Other Additional Past Medical Histor: CHOLECYSITIS Past Surgical History: No Surgical History Alcohol Use: None General Adult HPI: HPI: Patient is a 74-year-old female who was sent to the emergency department from her PCPs office. She was hospitalized here about 2 weeks ago with pneumonia, tested negative for COVID as well as other identifiable pathogens, per reviewed records. She states that she has had persistent weakness since she left the hospital and went today to see her PCP for follow-up and was too weak to be sent home so she was sent to the emergency department. She reports a mild increase of shortness of breath compared to baseline but not nearly as short of breath as she was when she came into the hospital. She denies any pain, occluding any headache, chest pain, and has not had any focal weakness, or numbness. She does report some generalized weakness. There are no alleviating or exacerbating factors to his symptoms. She normally ambulates with the use of a cane Or walker. Review of Systems: Review of Systems: Constitutional: Denies fever or chills Eyes: Denies change in visual acuity HENT: Denies nasal congestion or sore throat Respiratory: Denies cough or shortness of breath Cardiovascular: Denies chest pain or edema GI: Denies abdominal pain, nausea, vomiting, bloody stools or diarrhea : Denies dysuria Musculoskeletal: Denies back pain or joint pain Integument: Denies rash Neurologic: Denies headache, focal weakness or sensory changes Endocrine: Denies polyuria or polydipsia Lymphatic: Denies swollen glands Psychiatric: Denies depression or anxiety Heart Score: Risk Factors: Risk Factors: DM, Current or recent (<one month) smoker, HTN, HLP, family history of CAD, obesity. Risk Scores: Score 0 - 3: 2.5% MACE over next 6 weeks - Discharge Home Score 4 - 6: 20.3% MACE over next 6 weeks - Admit for Clinical Observation Score 7 - 10: 72.7% MACE over next 6 weeks - Early Invasive Strategies Allergies: Allergies: Allergies Coded Allergies Type Severity Reaction Last Updated Verified Penicillins Allergy Intermediate Rash 03/08/15 Yes Physical Exam: PE: PHYSICAL EXAM: CONSTITUTIONAL: Well developed, well nourished HEAD: normocephalic, atraumatic EENT: PERRL, EOMI. Conjunctivae normal color, sclerae non-icteric; moist mucous membranes. NECK: Supple, non-tender; no meningismus. LUNGS: Lungs CTA, breathing even and unlabored. Normal air movement. HEART: Regular rate and rhythm, no murmur CHEST: No deformity; non-tender ABDOMEN: The abdomen is soft, and non-tender, no masses or bruits. EXTREM: Normal ROM; no deformity, no calf tenderness. Normal pulses palpable in all extremities. There is no pedal edema. SKIN: No rash; no diaphoresis NEURO: Alert; normal speech and cognition; CN's grossly intact; strength grossly intact without focal deficit. BACK: No CVA TTP. Current Patient Data: Labs: Laboratory Tests Test 01/04/20 12:43 White Blood Count 12.9 x10^3/uL Red Blood Count 4.35 x10^6/uL Hemoglobin 12.1 g/dL Hematocrit 36.2 % Mean Corpuscular Volume 83 fL Mean Corpuscular Hemoglobin 28 pg Mean Corpuscular Hemoglobin Concent 33 g/dL Red Cell Distribution Width 15.6 % Platelet Count 237 x10^3/uL Neutrophils (%) (Auto) 79 % Lymphocytes (%) (Auto) 10 % Monocytes (%) (Auto) 10 % Eosinophils (%) (Auto) 0 % Basophils (%) (Auto) 1 % Neutrophils # (Auto) 10.2 x10^3uL Lymphocytes # (Auto) 1.3 x10^3/uL Monocytes # (Auto) 1.3 x10^3/uL Eosinophils # (Auto) 0.0 x10^3/uL Basophils # (Auto) 0.1 x10^3/uL Prothrombin Time 11.4 SEC Prothromb Time International Ratio 1.1 Sodium Level 134 mmol/L Potassium Level 4.1 mmol/L Chloride Level 98 mmol/L Carbon Dioxide Level 25 mmol/L Anion Gap 11 Blood Urea Nitrogen 35 mg/dL Creatinine 2.4 mg/dL Estimated GFR (Cockcroft-Gault) 19.8 BUN/Creatinine Ratio 15 Glucose Level 101 mg/dL Lactic Acid Level 2.8 mmol/L Calcium Level 9.9 mg/dL Magnesium Level 1.6 mg/dL Total Bilirubin 0.7 mg/dL Aspartate Amino Transf (AST/SGOT) 43 U/L Alanine Aminotransferase (ALT/SGPT) 27 U/L Alkaline Phosphatase 150 U/L Troponin I Quantitative 0.018 ng/mL [id number] Natriuretic Peptide 1414 pg/mL Total Protein 6.8 g/dL Albumin 2.5 g/dL Albumin/Globulin Ratio 0.6 Valproic Acid (Depakene) Level 50 mcg/mL Valproic Acid Last Dose Date 01/04/20 Valproic Acid Last Dose Time 1238 EKG: EKG: Normal sinus rhythm at a rate of 83 bpm, left axis deviation, normal intervals, nonspecific ST/T changes. Low voltage is present. [] Radiology/Procedures: Radiology/Procedures: PROCEDURE: CHEST PA & LATERAL EXAM: CHEST PA LATERAL 01/04/2020 12:38 PM CLINICAL INDICATION:Weakness COMPARISON:Chest radiograph 12/21/[address] chest 12/22/2019 TECHNIQUE:PA and lateral views of the chest FINDINGS:The heart and mediastinum are normal. Lungs are normally expanded. No consolidation, pleural effusion, or pneumothorax. No pulmonary edema. No acute osseous abnormality. IMPRESSION:No acute cardiopulmonary abnormality.[] Course & Med Decision Making: Course & Med Decision Making Pertinent Labs and Imaging studies reviewed. (See chart for details) [] I spoke with the patient's PCP who would like the patient admitted for further evaluation of her increasing weakness. The patient is agreeable. Patient's lactic acid is similar to her prior values. Her creatinine is increa sed. Dragon Disclaimer: Alexis Disclaimer: This electronic medical record was generated, in whole or in part, using a voice recognition dictation system. Departure Departure: Impression: Primary Impression: Weakness Additional Impression: Acute renal failure Disposition: ADMITTED INPATIENT Admitting Physician: Hudson Pinzon Condition: STABLE Referrals: HUDSON PINZON MD (PCP) KAYLI NAYAK MD January 04, 2020 12:43
[2020-01-04 13:02] LABS: BASO # 0.1 x10^3/uL (0.0-0.2); BASO % 1 % (0-3); EOS % 0 % (0-3); HEMATOCRIT 36.2 % (36.0-47.0); HEMOGLOBIN 12.1 g/dL (12.0-15.5); LYMPH # 1.3 x10^3/uL (1.0-4.8); LYMPH % 10 % (24-48); MEAN CORPUSCULAR HEMOGLOBIN 28 pg (25-35); MEAN CORPUSCULAR HGB CONC 33 g/dL (31-37); MEAN CORPUSCULAR VOLUME 83 fL (79-100); MONO # 1.3 x10^3/uL (0.0-1.1); MONO % 10 % (0-9); NEUT # 10.2 x10^3uL (1.8-7.7); NEUT % 79 % (31-73); PLATELET COUNT 237 x10^3/uL (140-400); RED BLOOD COUNT 4.35 x10^6/uL (3.50-5.40); RED CELL DISTRIBUTION WIDTH 15.6 % (11.5-14.5); WHITE BLOOD COUNT 12.9 x10^3/uL (4.0-11.0)
--- NOTE | 2020-01-04 13:02 | RAD ---
EXAM: CHEST PA LATERAL 01/04/2020 12:38 PM CLINICAL INDICATION:Weakness COMPARISON:Chest radiograph 12/21/[address] chest 12/22/2019 TECHNIQUE:PA and lateral views of the chest FINDINGS:The heart and mediastinum are normal. Lungs are normally expanded. No consolidation, pleural effusion, or pneumothorax. No pulmonary edema. No acute osseous abnormality. IMPRESSION:No acute cardiopulmonary abnormality. Electronically signed by: Basia Everett MD (01/04/2020 12:59 PM) [id number]
[2020-01-04 13:11] LABS: ANION GAP 11 (6-14); BLOOD UREA NITROGEN 35 mg/dL (7-20); BUN/CREATININE RATIO 15 (6-20); CALCIUM 9.9 mg/dL (8.5-10.1); CARBON DIOXIDE 25 mmol/L (21-32); CHLORIDE 98 mmol/L (98-107); CREATININE 2.4 mg/dL (0.6-1.0); GFR 19.8; GLUCOSE 101 mg/dL (70-99); POTASSIUM 4.1 mmol/L (3.5-5.1); SODIUM 134 mmol/L (136-145)
[2020-01-04 13:17] LABS: ALBUMIN 2.5 g/dL (3.4-5.0); ALBUMIN/GLOBULIN RATIO 0.6 (1.0-1.7); ALK PHOS 150 U/L (46-116); ALT (SGPT) 27 U/L (14-59); AST (SGOT) 43 U/L (15-37); MAGNESIUM 1.6 mg/dL (1.8-2.4); TOTAL BILIRUBIN 0.7 mg/dL (0.2-1.0); TOTAL PROTEIN 6.8 g/dL (6.4-8.2)
--- NOTE | 2020-01-04 13:27 | EKG ---
[address] [address] Test Date: 2020-01-04 Test Time: 13:01:14 Pat Name: MI MAHAJAN Department: Room: Gender: F [employer] Operator: : 1945 Requested By: KAYLI NAYAK Order Number: [id number] Reading MD: Viktor Davidson Measurements Intervals [place] Rate: 83 P: -64 NH: 120 QRS: -2 QRSD: 88 T: -1 QT: 364 QTc: 428 Interpretive Statements SINUS RHYTHM LEFTWARD AXIS LOW LIMB LEAD VOLTAGE Electronically Signed On 01-05-2020 8:04:16 CDT by Viktor Davidson
[2020-01-04 13:48] LABS: VAL ACID 50 mcg/mL (50-100)
[2020-01-04] MEDS ORDERED: IV NORMAL SALINE 1,000ML 1,000 ML IV SCH (13:52)
[2020-01-04] MEDS ORDERED: IV NORMAL SALINE 500ML 500 ML IV ONE (14:00)
[2020-01-04 14:09] LABS: BILIRUBIN,URINE NEG (NEG); CLARITY,URINE HAZY; COLOR,URINE YELLOW; GLUCOSE,URINE NEG (NEG); NITRITE,URINE NEG (NEG); UROBILINOGEN,URINE 0.2 mg/dL (0.2 mg/dL)
[2020-01-04 14:10] LABS: BACTERIA,URINE FEW /HPF (0-FEW); SQUAMOUS EPITHELIAL CELL,UR MOD /LPF
[2020-01-04 14:11] LABS: YEAST,URINE PRESENT /HPF
[2020-01-04 14:49] VITALS: BP 91/47
[2020-01-04] MEDS ORDERED: ELECTROLYTE (NON-ICU) PROTOCOL MC PRN (17:00)
[2020-01-04] MEDS: IV NORMAL SALINE 1,000ML 1,000 ML IV SCH (17:15)
[2020-01-04 17:30] LABS: BGAS PH 7.64 (7.35-7.45)
[2020-01-04 17:54] LABS: URIC ACID 5.2 mg/dL (2.6-6.0)
[2020-01-04 17:55] VITALS: BP 102/48
--- NOTE | 2020-01-04 19:41 | RAD ---
CT head without contrast dated 01/04/2020. No comparison available. CLINICAL INDICATION: Sepsis. Possible infection. TECHNIQUE: Contiguous axial imaging the head was performed from skull base to vertex. No contrast administered. One or more of the following individualized dose reduction techniques were utilized for this examination: 1. Automated exposure control 2. Adjustment of the mA and/or kV according to patient size 3. Use of iterative reconstruction technique. FINDINGS: Ventricles and sulci are mildly prominent for age. No midline shift or mass effect. Brain parenchyma is of normal attenuation. No hemorrhage or extra-axial collection. Posterior fossa and brainstem unremarkable. No apparent calvarial abnormality. There is minimal mucosal thickening of the sphenoid sinuses with partial opacification of the right mastoid air cells. IMPRESSION: 1. No evidence of acute intracranial hemorrhage or mass. 2. Mild chronic small vessel ischemic changes and atrophy. Electronically signed by: Negro Guerrero MD (01/04/2020 7:38 PM) KAYLAH
--- NOTE | 2020-01-04 19:46 | RAD ---
CT chest without contrast dated 01/04/2020. Comparison made to 12/22/2019. CLINICAL INDICATION: Sepsis. TECHNIQUE: Contiguous axial imaging the chest performed without the administration of IV contrast. One or more of the following individualized dose reduction techniques were utilized for this examination: 1. Automated exposure control 2. Adjustment of the mA and/or kV according to patient size 3. Use of iterative reconstruction technique FINDINGS: Heart size mildly enlarged. No pericardial effusion. Mild ectasia of the ascending thoracic aorta measuring 3.9 cm transverse, unchanged. There are borderline enlarged precarinal and subcarinal lymph nodes, stable. No axillary or hilar adenopathy is apparent. Thyroid gland is unremarkable. Central airways are patent. Evaluation is somewhat limited due to motion artifact. No consolidation or pleural effusion. No pneumothorax. Minimal groundglass density in the lingula and lower lobes, similar to slightly improved. No pneumothorax. Limited images of upper abdomen unremarkable. Bone windows show no acute findings. Multilevel spondylosis. IMPRESSION: 1. No evidence of focal pneumonia. There is minimal patchy groundglass density at both lung bases, nonspecific but unchanged from prior exam. 2. Borderline enlarged mediastinal lymph nodes, stable. 3. No new or acute findings. Electronically signed by: Negro Guerrero MD (01/04/2020 7:43 PM) [facility]
[2020-01-04 19:53] VITALS: BP 98/62
[2020-01-04] MEDS ORDERED: VANCOMYCIN 2 GM in IV NORMAL SALINE 500ML 500 ML IV ONE (20:00)
[2020-01-04] MEDS: MAGNESIUM OXIDE 400 MG TABLET PO SCH (20:07)
[2020-01-04] MEDS: DIVALPROEX SODIUM 250 MG TABLET.DR. PO SCH (20:07)
--- NOTE | 2020-01-04 20:16 | CONS ---
DATE OF CONSULTATION: NEUROLOGY CONSULTATION REFERRING PHYSICIAN: Dr. Pinzon. REASON FOR CONSULTATION: Generalized weakness. HISTORY OF PRESENT ILLNESS: This is a 74-year-old right-handed female who was admitted through Emergency Room on account of generalized weakness. The patient was discharged approximately 10 days from this institution after she was diagnosed with pneumonia. At that time she demonstrated symptoms of viral infection. Therefore, she was tested negative for COVID-19 twice. The patient stated her weakness has been worsening recently. She denies headaches, visual disturbances, chest pain, but sometimes experiences exertional shortness of breath. She denies abdominal pain, bowel movement changes, hematemesis or hematochezia. The patient denies any recent falls or head injuries. PAST MEDICAL HISTORY: Significant for diabetes mellitus, hyperlipidemia, bilateral hearing loss, obesity, urinary tract infections, gout, chronic localized lower back pain, hypothyroidism, bipolar disorders, renal failure, hearing loss. PAST SURGICAL HISTORY: Negative. FAMILY HISTORY: Noncontributory. SOCIAL HISTORY: The patient lives with her at home. She denies smoking, alcohol drinking, or illicit drug use. CURRENT HOME MEDICATIONS: Allopurinol 300 mg daily, aspirin 81 mg daily, cefdinir 300 mg capsule daily, Depakote 500 mg 2 tablets at bedtime, Uloric 40 mg daily, glipizide 10 mg p.o. daily, Levaquin 500 mg daily, levothyroxine 50 mcg daily, Tradjenta 5 mg p.o. daily. Olmesartan, Benicar, 20 mg daily. Fish oil and oxybutynin daily, Evista 60 mg daily. ALLERGIES: PENICILLIN. REVIEW OF SYSTEMS: A 14-point review of system was performed as mentioned above in history of present illness, otherwise unremarkable consistent with generalized weakness after she had 2-week history of pneumonia. PHYSICAL EXAMINATION: GENERAL: Well-developed, well-nourished female, not in acute distress. She weighs 83.4 kilos. VITAL SIGNS: Blood pressure 102/48, respiratory rate is 16, pulse is 85 and regular, oxygen saturation 99% on room air, and temperature is 97.5. HEENT: Normocephalic, atraumatic, otherwise unremarkable. NECK: Supple. Negative for carotid bruit, lymphadenopathy or thyromegaly. LUNGS: Clear to A and P. CARDIOVASCULAR: Regular rate and rhythm, normal S1, S2. There is no S3, S4 or murmur. ABDOMEN: Soft. Bowel sounds positive. EXTREMITIES: Negative for cyanosis, clubbing or edema. NEUROLOGICAL: MENTAL STATUS: The patient is alert and oriented x 3. Speech is fluent. There is no language dysfunction. Memory, judgment, and abstract thinking are fair. The patient denies hallucination or delusion. CRANIAL NERVES: Visual marshall are full. The pupils are reactive to light and accommodation. The extraocular movements are intact. There is no nystagmus. There is no facial motor or sensory deficit. The hearing is diminished bilaterally. The palate is elevated symmetrically. Sternocleidomastoid muscles are powerful bilaterally. The patient shrugs her shoulders symmetrically, protrudes her tongue in the midline without fasciculation or atrophy. MOTOR EXAMINATION: No focal muscle bulk was seen. The tone is normal. The strength is 5/5 in the upper extremities and 4/5 in the lower extremities. SENSORY EXAMINATION: Revealed normal pinprick and light touch senses throughout. Deep tendon reflexes were symmetric and hypoactive with absent Achilles responses. GAIT: The patient uses a walker for ambulation. She was able to get up and use a walker and ambulates in the room without assistance. The coordination is normal. DIAGNOSTIC DATA: Chest x-ray revealed no acute cardiopulmonary process. LABORATORY DATA: CBC revealed white blood cells of 12,900, hemoglobin 12.1, hematocrit 26.2, platelet count 232,000. Urinalysis: Trace of leukocyte with white blood cells of 5-10 and negative nitrite. Normal coagulation. Chemistry: Sodium is 134, potassium 4.1, chloride 98, CO2 of 25, BUN 35, creatinine 2.4, glucose 101. Hemoglobin A1c 5.8. Lactic acid 1.7, calcium is 9.9. Liver enzymes slightly elevated AST and normal ALT with high alkaline phosphatase and troponin was elevated, NPB at 1414. IMPRESSION: 1. Generalized weakness, multifactorial, rule out systemic infections versus peripheral neuropathy or chronic radiculopathy. 2. Acute renal failure, may have contributed to the current symptoms as well. 3. Multiple medical problems include bipolar disorder, gout and hypothyroidism. RECOMMENDATIONS: 1. Continue with current management initiated by Dr. Pinzon. 2. Physical therapy as tolerated. 3. We will arrange for EMG/NCS of the lower extremities to rule out neuropathy versus lumbosacral radiculopathy. M Vinh LAZAR MD DR: LISSET/flex JOB#: [id number] / [id number]
[2020-01-04] MEDS: ENOXAPARIN 30 MG/0.3 ML SYRINGE. SQ SCH (21:00)
[2020-01-04] MEDS: AZTREONAM 0.5 GM in IV NORMAL SALINE 50ML 50 ML IV SCH (22:13)
[2020-01-04 23:53] VITALS: BP 117/64
[2020-01-05] MEDS: IV NORMAL SALINE 1,000ML 1,000 ML IV SCH ×3 (02:15→20:06)
[2020-01-05 05:25] VITALS: BP 97/59
[2020-01-05] MEDS: LEVOTHYROXINE 50 MCG TABLET PO SCH (05:56)
[2020-01-05] MEDS: AZTREONAM 0.5 GM in IV NORMAL SALINE 50ML 50 ML IV SCH ×3 (05:56→22:00)
[2020-01-05 07:55] LABS: BASO # 0.1 x10^3/uL (0.0-0.2); BASO % 1 % (0-3); EOS % 1 % (0-3); HEMATOCRIT 35.8 % (36.0-47.0); HEMOGLOBIN 11.8 g/dL (12.0-15.5); LYMPH # 1.2 x10^3/uL (1.0-4.8); LYMPH % 11 % (24-48); MEAN CORPUSCULAR HEMOGLOBIN 28 pg (25-35); MEAN CORPUSCULAR HGB CONC 33 g/dL (31-37); MEAN CORPUSCULAR VOLUME 84 fL (79-100); MONO % 9 % (0-9); NEUT # 8.3 x10^3uL (1.8-7.7); NEUT % 79 % (31-73); PLATELET COUNT 222 x10^3/uL (140-400); RED BLOOD COUNT 4.28 x10^6/uL (3.50-5.40); RED CELL DISTRIBUTION WIDTH 15.7 % (11.5-14.5); WHITE BLOOD COUNT 10.6 x10^3/uL (4.0-11.0)
[2020-01-05 08:05] LABS: CALCIUM 9.2 mg/dL (8.5-10.1); GFR 24.4; POTASSIUM 3.8 mmol/L (3.5-5.1)
[2020-01-05] MEDS: ALLOPURINOL 300 MG TABLET. PO SCH (08:06)
[2020-01-05] MEDS: ASPIRIN ENTERIC COATED 81 MG TABLET.DR. PO SCH (08:06)
[2020-01-05] MEDS: MAGNESIUM OXIDE 400 MG TABLET PO SCH ×2 (08:06→20:07)
[2020-01-05] MEDS ORDERED: LINAGLIPTIN 5 MG TABLET PO SCH (09:00)
[2020-01-05 10:30] VITALS: BP 143/55
[2020-01-05 11:44] LABS: BGAS PH 7.43 (7.35-7.45)
[2020-01-05 14:55] VITALS: BP 109/54
[2020-01-05] MEDS: VANCOMYCIN PER PHARMACY MC PRN (15:36)
[2020-01-05] MEDS ORDERED: glipiZIDE 5 MG TABLET PO SCH (17:30)
[2020-01-05 18:26] VITALS: BP 113/66
[2020-01-05] MEDS: ENOXAPARIN 30 MG/0.3 ML SYRINGE. SQ SCH (20:07)
[2020-01-05] MEDS: VANCOMYCIN 1.25 GM in IV NORMAL SALINE 250ML 250 ML IV SCH (20:07)
[2020-01-05] MEDS: DIVALPROEX SODIUM 250 MG TABLET.DR. PO SCH (20:08)
--- NOTE | 2020-01-05 20:33 | PN ---
DATE: SUBJECTIVE: The patient came in with general muscle weakness, unable to support herself. The patient also had an extreme respiratory alkalosis as well as possible sepsis and very low magnesium levels. The patient has made good progress today. We have adjusted her medications, given her additional magnesium and increased her CO2. Dr. Little, noted neurologist has also reviewed the patient. We have done extensive workup and could not find. There was minimal patchy ground glass density in the lower lung base. She has been placed on IV antibiotic therapy because of an elevated lactic acid. CT scan of the head was unremarkable. Repeat of her blood gases showed her pH has come down to 7.43, pCO2 up to 32. OBJECTIVE: GENERAL: The patient is alert and oriented. LUNGS: Diminished, but clear. She is able to mobilize better now and is gaining strength. She will continue with PT, OT possibly on the rehab floor to continue her rehabilitation program and make further evaluation on her as we progress here. IMPRESSION: Generalized weakness, respiratory alkalosis, low magnesium, possible sepsis, possible peripheral neuropathy, acute renal failure, gout, hypothyroidism, morbid obesity. We will continue to monitor the patient accordingly, make further evaluation with PT and OT. JESSICA PEOPLES MD DR: KEY/flex JOB#: [id number] / [id number]
--- NOTE | 2020-01-05 20:43 | PN ---
DATE: SUBJECTIVE: The patient denies any new medical or neurological complaints. She stated she feels better today and she is working with physical therapy. OBJECTIVE: GENERAL: A well-developed, well-nourished female in no acute distress. VITAL SIGNS: Blood pressure 113/66, respiratory rate 20, pulse is 83 and regular, oxygen saturation 99% and temperature 99. HEENT: Normocephalic, atraumatic, otherwise unremarkable. NECK: Supple. Negative for carotid bruit, lymphadenopathy or thyromegaly. LUNGS: Clear to A and P. CARDIOVASCULAR: Regular rate and rhythm, normal S1, S2. ABDOMEN: Soft. Bowel sounds positive. EXTREMITIES: Negative for cyanosis, clubbing or edema. NEUROLOGICAL EXAMINATION: Mental Status: The patient is alert and oriented x 3. Speech is fluent. There is no language dysfunction. Cranial nerves are intact. No focal motor or sensory deficit. The strength is 4/5 in the lower extremity, more proximally than distally. Deep tendon reflexes were symmetric and hypoactive with absent Achilles responses. Gait: The patient uses a walker for ambulation. LABORATORY DATA: CBC revealed white blood cells of 10,600, hemoglobin 11.8, hematocrit 35.8, platelet count 222,000. Chemistry revealed sodium of 138, potassium 3.8, chloride 102, CO2 of 25, BUN 27, creatinine 2, glucose of 125, calcium 9.2. Chest CT scan today revealed no evidence of pneumonia and no acute findings with borderline enlarged mediastinal lymph nodes stable. IMPRESSION: 1. Generalized weakness, probably multifactorial. 2. Acute renal failure. 3. Multiple medical problems include bipolar disorder, gout and hypothyroidism. RECOMMENDATIONS: 1. Continue with physical therapy and management initiated by Dr. Pinzon. 2. We will arrange for EMG/NCS of the lower extremities to rule out neuropathy versus lumbosacral radiculopathy. M Vinh LAZAR MD DR: LISSET/flex JOB#: [id number] / [id number]
[2020-01-05 23:07] VITALS: BP 130/71
[2020-01-06] MEDS: IV NORMAL SALINE 1,000ML 1,000 ML IV SCH ×2 (01:15→07:21)
[2020-01-06] MEDS: AZTREONAM 0.5 GM in IV NORMAL SALINE 50ML 50 ML IV SCH ×3 (05:34→22:09)
[2020-01-06] MEDS: LEVOTHYROXINE 50 MCG TABLET PO SCH (05:34)
[2020-01-06 05:49] VITALS: BP 117/68
[2020-01-06 06:14] LABS: BASO # 0.1 x10^3/uL (0.0-0.2); BASO % 1 % (0-3); EOS # 0.1 x10^3/uL (0.0-0.7); EOS % 1 % (0-3); HEMOGLOBIN 10.5 g/dL (12.0-15.5); LYMPH # 1.3 x10^3/uL (1.0-4.8); LYMPH % 16 % (24-48); MEAN CORPUSCULAR HEMOGLOBIN 28 pg (25-35); MEAN CORPUSCULAR HGB CONC 33 g/dL (31-37); MEAN CORPUSCULAR VOLUME 84 fL (79-100); MONO # 0.8 x10^3/uL (0.0-1.1); MONO % 10 % (0-9); NEUT # 5.9 x10^3uL (1.8-7.7); NEUT % 73 % (31-73); PLATELET COUNT 156 x10^3/uL (140-400); RED BLOOD COUNT 3.79 x10^6/uL (3.50-5.40); RED CELL DISTRIBUTION WIDTH 15.8 % (11.5-14.5); WHITE BLOOD COUNT 8.1 x10^3/uL (4.0-11.0)
[2020-01-06 06:18] LABS: CALCIUM 8.6 mg/dL (8.5-10.1); CREATININE 1.5 mg/dL (0.6-1.0); POTASSIUM 3.7 mmol/L (3.5-5.1)
[2020-01-06] MEDS: MAGNESIUM OXIDE 400 MG TABLET PO SCH (08:12)
[2020-01-06] MEDS: ASPIRIN ENTERIC COATED 81 MG TABLET.DR. PO SCH (08:12)
[2020-01-06] MEDS: ALLOPURINOL 300 MG TABLET. PO SCH (08:12)
--- NOTE | 2020-01-06 10:27 | PN ---
DATE: SUBJECTIVE: The patient complains of severe pain confined to the right foot. OBJECTIVE: GENERAL: Well-developed, well-nourished female, not in acute distress. VITAL SIGNS: Blood pressure 117/68, respiratory rate 20, pulse is 88, oxygen saturation is 96% on room air, and temperature 98.6. HEENT: Normocephalic, atraumatic, otherwise unremarkable. NECK: Supple. Negative for carotid bruit, lymphadenopathy or thyromegaly. LUNGS: Clear to A and P. CARDIOVASCULAR: Regular rate and rhythm, normal S1, S2. ABDOMEN: Soft. Bowel sounds positive. EXTREMITIES: Negative for cyanosis, clubbing or pitting edema. However, the right foot has redness, tender to touch, consistent with possible early cellulitis versus exacerbation of gouty inflammation. NEUROLOGIC: Normal mental status and intact cranial nerves. There is no focal motor or sensory deficits. The strength is 4/5 in the lower extremities, otherwise 5/5 in the upper extremities. Deep tendon reflexes were symmetric and hypoactive with absent Achilles responses. Gait: The patient uses a walker for ambulation. LABORATORY DATA: CBC revealed white blood cells of 8100, hemoglobin 10.5, hematocrit 32, platelet count 156,000. Chemistry: Sodium is 140, potassium 3.7, chloride 107, CO2 27, BUN 21, creatinine 1.5, glucose 107, calcium 8.6. IMPRESSION: 1. Generalized weakness -- improved. 2. Right foot cellulitis versus gouty inflammation. 3. Bipolar disorder and hypothyroidism. RECOMMENDATIONS: 1. Continue with current management initiated by Dr. Pinzon. 2. Physical therapy as tolerated. M Vinh LAZAR MD DR: LISSET/flex JOB#: [id number] / [id number]
[2020-01-06 11:30] VITALS: BP 136/65
[2020-01-06 14:06] VITALS: BP 112/68
--- NOTE | 2020-01-06 17:19 | PN ---
DATE: SUBJECTIVE: She is feeling better. She is stronger. She was walking in the [place] this morning and seemed to be doing somewhat better. Her temperature has come down somewhat and seems to be making good progress overall in that regard. The patient's white count has come down to 8100 and she continues to make steady progress. Urine culture was basically unremarkable. Blood cultures were unremarkable. Labs were pretty much unremarkable. OBJECTIVE: GENERAL: The patient is alert and oriented. Speech is fluent, spontaneous. Like I said, she has a very pleasant affect and feels better. She denies chest pain, shortness of breath, abdominal pain, nausea, vomiting, melena, hematochezia, or hematemesis. LUNGS: Diminished, but absolutely clear to auscultation. CARDIOVASCULAR: Regular sinus rhythm. ABDOMEN: Soft, nontender. VITAL SIGNS: Blood pressure 136/65, respiratory rate 20, pulse 79, afebrile. CT scan showed no evidence of focal pneumonia, patchy areas of ground glass density minimal, unchanged from previous exams. Dr. Little has been kind enough to review the patient and he notes she has generalized weakness improved and some possible gout which she has had. She has bipolar disorder. Her uric acid is down to 5.2. Interesting enough, her cortisol p.m. level is elevated and her cortisol a.m. level is elevated. We need to work on that. Her creatinine has gone down from 2 down to 1.5 and her GFR has come up from approximately 19 up to 35. So, we have made excellent progress in some of these numbers. IMPRESSION: Hyperaldosteronism, generalized weakness, acute renal failure, low magnesium, acute respiratory disease, generalized weakness, gout, cerebral atrophy. Previous CT scan of the abdomen demonstrated her adrenal glands to be normal, so further evaluation on her elevated cortisol levels will be undertaken. JESSICA PEOPLES MD DR: KEY/flex JOB#: [id number] / [id number]
[2020-01-06 19:05] VITALS: BP 112/67
[2020-01-06] MEDS: ENOXAPARIN 30 MG/0.3 ML SYRINGE. SQ SCH (20:24)
[2020-01-06] MEDS: DIVALPROEX SODIUM 250 MG TABLET.DR. PO SCH (20:24)
[2020-01-06] MEDS: VANCOMYCIN 1.25 GM in IV NORMAL SALINE 250ML 250 ML IV SCH (20:25)
[2020-01-06] MEDS: VANCOMYCIN PER PHARMACY MC PRN (20:43)
[2020-01-06] MEDS ORDERED: LACTOBACILLUS RHAMNOSUS GG 1 CAPSULE. PO SCH (21:00)
[2020-01-06 22:24] VITALS: BP 129/72
[2020-01-06] MEDS ORDERED: ACETAMINOPHEN 325 MG TABLET PO PRN (23:15)
== END 2020-01-07 00:02 | DRG 682 ==
LOC: ER 12:21 → 1 SOUTH 13:50 → OBSVTOIN 16:29
PROVIDERS: ADMIT Family Medicine; ATTEND Family Medicine
DX: N17.9 Acute kidney failure, unspecified (principal); E43 Unspecified severe protein-calorie malnutrition; E87.3 Alkalosis; M1A.9XX0 Chronic gout, unspecified, without tophus (tophi); G31.9 Degenerative disease of nervous system, unspecified; E03.9 Hypothyroidism, unspecified; E11.9 Type 2 diabetes mellitus without complications; E26.9 Hyperaldosteronism, unspecified; E78.00 Pure hypercholesterolemia, unspecified; E78.5 Hyperlipidemia, unspecified; F31.9 Bipolar disorder, unspecified; Z79.82 Long term (current) use of aspirin; Z79.84 Long term (current) use of oral hypoglycemic drugs; Z79.899 Other long term (current) drug therapy; E66.01 Morbid (severe) obesity due to excess calories; Z68.31 Body mass index [BMI] 31.0-31.9, adult
CPT/HCPCS: 36415; 36600; 70450; 71046; 71250; 80048; 80053; 80164; 80202; 81001; 82330; 82533; 82550; 82803; 82947; 83605; 83735; 83880; 84134; 84145; 84484; 84550; 85025; 85610; 87040; 87086; 87635; 93005; G0378; G0379; J1650; J3370; J3490; J7040; J7050; 97110; 97116; 97530; 97535; 99285-25; J7030

== ENCOUNTER 2020-01-07 | Inpatient (IN) | payer MEDICARE, BC ==
[~2020-01-07] VITALS: Ht 162.6 cm; Wt 84.1 kg
--- NOTE | 2020-01-07 00:58 | NUR ---
Swing Bed Admission Patient Handbook for Longterm given to patient. Nursing Problem: Admitted to [facility] with weakness, JOANNA, and pneumonia Cognitive/Behavioral: Pt is alert and oriented x4. Pt is calm and interactive with staff. Pain: Pt is resting comfortably in bed at this time. Respiratory Status: Pt is on room air. SOB on exertion. No cough noted. Skin: Skin is dry/thin, but intact. Mild redness and edema to top of right foot, pt has gout. Bowel/Bladder Continence: Pt wears a brief for stress incontinence. Continent of bowel, LBM 01/05. ADL Functional Status: Pt needs x1 assist to get a boost up from a seated position. Pt requires stand by assistance when ambulating with her walker. Pt is able to change brief independent. Fall(s) prior to admission? No Admitted from? [facility], prior to admission home with .
[2020-01-07] MEDS ORDERED: ELECTROLYTE (NON-ICU) PROTOCOL MC PRN (01:00)
[2020-01-07] MEDS ORDERED: AZTREONAM 0.5 GM in IV NORMAL SALINE 50ML 50 ML IV SCH (06:00)
[2020-01-07] MEDS: LEVOTHYROXINE 50 MCG TABLET PO SCH (06:25)
[2020-01-07 06:35] VITALS: BP 113/73
[2020-01-07] MEDS: ALLOPURINOL 300 MG TABLET. PO SCH (07:44)
[2020-01-07] MEDS: ASPIRIN ENTERIC COATED 81 MG TABLET.DR. PO SCH (07:44)
[2020-01-07 08:26] VITALS: BP 116/80
[2020-01-07] MEDS ORDERED: methylPREDNISolone SOD SUCC PF 40 MG/ML VIAL. IV ONE (08:45)
[2020-01-07] MEDS: ACETAMINOPHEN/CODEINE 300/30MG TABLET PO PRN (09:06)
[2020-01-07] MEDS: COLCHICINE 0.6 MG TABLET PO SCH (09:06)
--- NOTE | 2020-01-07 09:22 | PN ---
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 She made good progress. We took her off multiple medications, continued her on some antibiotic therapy. She made excellent progress overall and as a result of this, she was still very weak. She still required PT, OT, was brought to the system of rehab center. However, her right 1st metatarsal was markedly swollen, erythematous and obviously she has a history of gout, although her last uric ____. Dictation Ends Here. JESSICA PEOPLES MD DR: KEY/flex JOB#: [id number] / [id number]
[2020-01-07 09:53] LABS: BASO # 0.1 x10^3/uL (0.0-0.2); BASO % 1 % (0-3); EOS % 0 % (0-3); HEMATOCRIT 31.2 % (36.0-47.0); HEMOGLOBIN 10.1 g/dL (12.0-15.5); LYMPH # 0.7 x10^3/uL (1.0-4.8); LYMPH % 11 % (24-48); MEAN CORPUSCULAR HEMOGLOBIN 28 pg (25-35); MEAN CORPUSCULAR HGB CONC 33 g/dL (31-37); MEAN CORPUSCULAR VOLUME 85 fL (79-100); MONO # 0.7 x10^3/uL (0.0-1.1); MONO % 10 % (0-9); NEUT # 5.4 x10^3uL (1.8-7.7); NEUT % 78 % (31-73); PLATELET COUNT 136 x10^3/uL (140-400); RED BLOOD COUNT 3.68 x10^6/uL (3.50-5.40); RED CELL DISTRIBUTION WIDTH 15.8 % (11.5-14.5); WHITE BLOOD COUNT 6.9 x10^3/uL (4.0-11.0)
--- NOTE | 2020-01-07 09:59 | RAD ---
Three-view right foot radiographs 01/07/2020 CLINICAL HISTORY: Right foot pain. AP, lateral and oblique digital radiographs of the right foot were obtained. Mild hallux valgus deformity is noted. Mild to moderate degenerative changes are seen throughout the interphalangeal joints of the right foot and the first MTP joint. No fracture or dislocation of the right foot is seen. Moderate degenerative changes are seen involving the tarsal metatarsal joints. Moderate enthesophyte is seen involving the plantar aspect of the posterior right calcaneus. IMPRESSION: Degenerative changes are seen involving the right foot as discussed above. No acute osseous abnormality is seen. Electronically signed by: Jonnie Hassan MD (01/07/2020 9:56 AM) [id number]
[2020-01-07 10:11] LABS: CALCIUM 8.8 mg/dL (8.5-10.1); CREATININE 1.3 mg/dL (0.6-1.0); GFR 40.2; POTASSIUM 3.3 mmol/L (3.5-5.1)
[2020-01-07 10:22] LABS: C REACTIVE PROTEIN 59.8 mg/L (0-3.3)
[2020-01-07] MEDS ORDERED: POTASSIUM CHLORIDE 20 MEQ TABLET.ER. PO ONE (10:30)
--- NOTE | 2020-01-07 13:33 | NUR ---
SWING BED DOCUMENTATION PT HANDBOOK FOR LONGTERM GIVEN TO PT. NURSING PROBLEM: ADMIT TO 1 [facility] WITH WEAKNESS, JOANNA, AND PNEUMONIA COGNITIVE/BEHAVIORAL: PT A&O X4, CALM, COOPERATIVE, AND PLEASANT. WILLING TO DO WHAT IS NEEDED FOR THE REHAB PROGRAM. PAIN: PT REPORTS PAIN 8/10 IN HER RIGHT FOOT, PRN TYLENOL #3 GIVEN. RELIEF OF 3/10 POST PAIN MEDICATION. RESPIRATORY STATUS: RA, CTA. SOB ON EXERTION. SKIN: CDI. PT HAS REDNESS AND SWELLING ON RIGHT FOOT, GOUT FLARE UP, XRAY OBTAINED TODAY. BOWEL/BLADDER CONTINENCE: PT IS INCONTINENT, WEARS BRIEF. LBM WAS 01/05 ADL FUNCTIONAL STATUS: PT NEEDS X1 ASSIST BOOST UP FROM SEATED POSITION. PT REQUIRES ASSISTANCE TO PUT BRIEF OVER HER FEET AT TIMES, REQUIRES ASSISTANCE TO PUT ON HER SOCKS, PT REQUIRES ASSISTANCE WHEN AMBULATING WITH HER WALKER. PT ENCOURAGED TO STAY UP OUT OF BED MUCH POSSIBLE. PT ABLE TO AMBULATE TO DAY ROOM FOR MEALS. WILL CONTINUE TO MONITOR. DEBBI SMART.
[2020-01-07 18:26] VITALS: BP 102/59
[2020-01-07] MEDS: DIVALPROEX SODIUM 250 MG TABLET.DR. PO SCH (20:07)
[2020-01-07] MEDS: ENOXAPARIN 30 MG/0.3 ML SYRINGE. SQ SCH (20:07)
--- NOTE | 2020-01-08 01:38 | NUR ---
SWING BED DOCUMENTATION PT HANDBOOK FOR [facility] GIVEN TO PT. NURSING PROBLEM: ADMIT TO [facility] WITH WEAKNESS, JOANNA, AND PNEUMONIA COGNITIVE/BEHAVIORAL: PT A&O X4, CALM, COOPERATIVE, AND PLEASANT. PAIN: PT REPORTS NO PAIN BUT DOES HAVE TYLENOL 3 AVAILABLE RESPIRATORY STATUS: RA, CTA. SOB ON EXERTION. SKIN: CDI. PT HAS REDNESS AND SWELLING ON RIGHT FOOT, GOUT FLARE UP, XRAY SHOWS MODERATE DEGENERATIVE CHANGES BOWEL/BLADDER CONTINENCE: PT IS INCONTINENT, WEARS BRIEF. LBM WAS 01/05 ADL FUNCTIONAL STATUS: PT NEEDS X1 ASSIST BOOST UP FROM SEATED POSITION. PT REQUIRES ASSISTANCE TO PUT BRIEF OVER HER FEET AT TIMES, REQUIRES ASSISTANCE TO PUT ON HER SOCKS, PT REQUIRES ASSISTANCE WHEN AMBULATING WITH HER WALKER. DEBBI SMART.
[2020-01-08 05:58] VITALS: BP 95/55
[2020-01-08] MEDS: LEVOTHYROXINE 50 MCG TABLET PO SCH (06:00)
[2020-01-08 07:55] VITALS: BP 115/50
[2020-01-08] MEDS: COLCHICINE 0.6 MG TABLET PO SCH (07:56)
[2020-01-08] MEDS: ASPIRIN ENTERIC COATED 81 MG TABLET.DR. PO SCH (07:56)
[2020-01-08] MEDS: ALLOPURINOL 300 MG TABLET. PO SCH (07:56)
[2020-01-08 17:46] VITALS: BP 136/56
--- NOTE | 2020-01-08 18:06 | NUR ---
Swing Bed Daily Note: Nursing Problem: Admitted to one [facility] with weakness, JOANNA, and pneumonia Cognitive/Behavioral: Pt is alert and oriented x4. Pt is calm and interactive with staff. Played games with staff today and spent time in the dayroom Pain: none today Respiratory Status: Pt is on room air. SOB on exertion. No cough noted. Skin: Skin is dry/thin, but intact. Mild redness and edema to top of right foot- pt has gout. Bowel/Bladder Continence: Pt wears a brief for stress incontinence. Continent of bowel, LBM 01/05. ADL Functional Status: Pt needs x1 assist to get a boost up from a seated position. Pt requires stand by assistance when ambulating with her walker. Pt is able to change brief independent.
[2020-01-08] MEDS: DIVALPROEX SODIUM 250 MG TABLET.DR. PO SCH (21:00)
[2020-01-08] MEDS: ENOXAPARIN 30 MG/0.3 ML SYRINGE. SQ SCH (21:00)
[2020-01-08] MEDS: ACETAMINOPHEN/CODEINE 300/30MG TABLET PO PRN (21:33)
[2020-01-09] MEDS: LEVOTHYROXINE 50 MCG TABLET PO SCH (05:47)
[2020-01-09] MEDS: COLCHICINE 0.6 MG TABLET PO SCH (08:06)
[2020-01-09] MEDS: ALLOPURINOL 300 MG TABLET. PO SCH (08:06)
[2020-01-09] MEDS: ASPIRIN ENTERIC COATED 81 MG TABLET.DR. PO SCH (08:06)
[2020-01-09 08:23] VITALS: BP 127/47
[2020-01-09 19:11] VITALS: BP 132/47
[2020-01-09] MEDS: DIVALPROEX SODIUM 250 MG TABLET.DR. PO SCH (20:08)
[2020-01-09] MEDS: ENOXAPARIN 30 MG/0.3 ML SYRINGE. SQ SCH (20:08)
--- NOTE | 2020-01-09 20:12 | NUR ---
Patient asked if she had a shower today. Patient stated "No." Patient offered a shower/linen change. Patient stated "I'm to tired, I feel better but I just want to sleep." Patient able to toilet self independently. Assisted with HS routine and assisted with positioning in bed. Call light in reach and bed alarm on.
--- NOTE | 2020-01-10 05:03 | NUR ---
Patient has voided/incontinent multiple times this shift. Patient denies pain with urination, no odor noted, urine yellow in color. Patient stated "I have had to go frequently at night ever since I got sick." Patient states "I have an appointment with a Kidney doctor at this end of January."
--- NOTE | 2020-01-10 05:07 | NUR ---
SWING BED DOCUMENTATION PT HANDBOOK FOR [facility] GIVEN TO PT. NURSING PROBLEM: ADMIT TO [facility] WITH WEAKNESS, JOANNA, AND PNEUMONIA COGNITIVE/BEHAVIORAL: PT A&O X4, CALM, COOPERATIVE, AND PLEASANT. PAIN: PT REPORTS NO PAIN BUT DOES HAVE TYLENOL 3 AVAILABLE RESPIRATORY STATUS: RA, CTA. DENIES SOB ON EXERTION. SKIN: CDI. PT HAS REDNESS AND SWELLING ON RIGHT FOOT, GOUT FLARE UP, XRAY SHOWS MODERATE DEGENERATIVE CHANGES BOWEL/BLADDER CONTINENCE: PT IS INCONTINENT, WEARS BRIEF. VOIDS AND IS INCONTINENT MULTIPLE TIMES THROUGHOUT NIGHT. PATIENT DENIES PAIN/DISCOMFORT WITH URINATION., NO ODOR NOTED, YELLOW IN COLOR. PATIENT STATES SHE HAS AN APPOINTMENT WITH KIDNEY DOCTOR AT THE END OF JANUARY. LAST BM WAS 01/05 ADL FUNCTIONAL STATUS: PT NEEDS X1 ASSIST BOOST UP FROM SEATED POSITION. PT REQUIRES ASSISTANCE TO PUT BRIEF OVER HER FEET AT TIMES, REQUIRES ASSISTANCE TO PUT ON HER SOCKS, PT REQUIRES ASSISTANCE WHEN AMBULATING WITH HER WALKER.
[2020-01-10] MEDS: LEVOTHYROXINE 50 MCG TABLET PO SCH (06:19)
[2020-01-10] MEDS: COLCHICINE 0.6 MG TABLET PO SCH (07:51)
[2020-01-10] MEDS: ASPIRIN ENTERIC COATED 81 MG TABLET.DR. PO SCH (07:51)
[2020-01-10] MEDS: ALLOPURINOL 300 MG TABLET. PO SCH (07:51)
[2020-01-10 07:53] VITALS: BP 137/60
[2020-01-10 19:00] VITALS: BP 139/53
[2020-01-10] MEDS: DIVALPROEX SODIUM 250 MG TABLET.DR. PO SCH (19:57)
[2020-01-10] MEDS: ACETAMINOPHEN/CODEINE 300/30MG TABLET PO PRN (19:57)
[2020-01-10] MEDS: ENOXAPARIN 30 MG/0.3 ML SYRINGE. SQ SCH (19:57)
[2020-01-11] MEDS: LEVOTHYROXINE 50 MCG TABLET PO SCH (05:41)
[2020-01-11 06:09] LABS: BASO # 0.1 x10^3/uL (0.0-0.2); BASO % 1 % (0-3); EOS # 0.1 x10^3/uL (0.0-0.7); EOS % 1 % (0-3); HEMATOCRIT 30.1 % (36.0-47.0); HEMOGLOBIN 9.9 g/dL (12.0-15.5); LYMPH # 2.1 x10^3/uL (1.0-4.8); LYMPH % 41 % (24-48); MEAN CORPUSCULAR HEMOGLOBIN 28 pg (25-35); MEAN CORPUSCULAR HGB CONC 33 g/dL (31-37); MEAN CORPUSCULAR VOLUME 85 fL (79-100); MONO # 0.4 x10^3/uL (0.0-1.1); MONO % 8 % (0-9); NEUT # 2.5 x10^3uL (1.8-7.7); NEUT % 49 % (31-73); PLATELET COUNT 191 x10^3/uL (140-400); RED BLOOD COUNT 3.55 x10^6/uL (3.50-5.40); RED CELL DISTRIBUTION WIDTH 15.8 % (11.5-14.5); WHITE BLOOD COUNT 5.1 x10^3/uL (4.0-11.0)
[2020-01-11 06:19] LABS: CALCIUM 8.8 mg/dL (8.5-10.1); GFR 54.3; POTASSIUM 3.9 mmol/L (3.5-5.1)
[2020-01-11 07:48] VITALS: BP 115/58
[2020-01-11 07:57] LABS: % BANDS 7 % (0-9); % BASOS 3 % (0-3); % LYMPHS 39 % (24-48); % METAS 2 % (0-0); % MONOS 4 % (0-10); % SEGS 45 % (35-66); PLT ESTIMATE ADEQUATE (ADEQUATE)
[2020-01-11 07:58] LABS: ANISOCYTOSIS SLIGHT; POLYCHROMASIA SLIGHT
[2020-01-11] MEDS: ASPIRIN ENTERIC COATED 81 MG TABLET.DR. PO SCH (08:00)
[2020-01-11] MEDS: ALLOPURINOL 300 MG TABLET. PO SCH (08:24)
[2020-01-11] MEDS: COLCHICINE 0.6 MG TABLET PO SCH (08:24)
--- NOTE | 2020-01-11 09:49 | PN ---
DATE: 01/11/2020 SUBJECTIVE: The patient is resting fairly comfortably, making good progress here on the skilled unit. PHYSICAL EXAMINATION: VITAL SIGNS: Blood pressure is 115/58, respiratory rate 70, temperature 98. GENERAL: The patient is alert and oriented. LUNGS: Diminished, but clear. CARDIOVASCULAR: Stable. ABDOMEN: Soft. EXTREMITIES: The patient's right foot seems to be doing somewhat better. She probably no doubt, has some form of gout in there. We will continue to monitor her accordingly on that and make further evaluation per those results. LABORATORY DATA: Otherwise, her labs have been reviewed and there is no recurrence of her pneumonia or renal failure. Her last BUN and creatinine were normal at 13 and 1. No signs of any sepsis, platelets have come back up to 191 indicating resolution. IMPRESSION: Generalized weakness following a bout of sepsis, thrombocytopenia, gout. PLAN: Continue with physical and occupational therapy. JESSICA PEOPLES MD DR: KEY/flex JOB#: [id number] / [id number]
[2020-01-11 20:07] VITALS: BP 132/60
[2020-01-11] MEDS: ENOXAPARIN 30 MG/0.3 ML SYRINGE. SQ SCH (21:01)
[2020-01-11] MEDS: DIVALPROEX SODIUM 250 MG TABLET.DR. PO SCH (21:02)
[2020-01-11] MEDS: ACETAMINOPHEN/CODEINE 300/30MG TABLET PO PRN (21:02)
[2020-01-12] MEDS: LEVOTHYROXINE 50 MCG TABLET PO SCH (06:15)
--- NOTE | 2020-01-12 06:18 | NUR ---
SWING BED DOCUMENTATION PT handbook for correction given to PT. NURSING PROBLEM: Admitted to Med/Surg Unit with weakness, JOANNA and pneuonia. COGNITIVE/BEHAVIORAL: PT A&O x4.. PT has been calm and cooperative with cares, assessment and medications. PT is very pleasant. PAIN: PT complained of pain. Medication given. Relief reported. RESPIRATORY STATUS: RA, CTA. SKIN: CDI. PT with erythema and edema to RT foot, edema to LT foot. BOWEL/BLADDER CONTINENCE: PT has been continent with bouts of incontinence in brief. PT is occasionally incontinent when squatting to toilet. LAST BM was 01/09. ADL FUNCTIONAL STATUS: PT has not needed assistance with standing this shift. PT is standby at this time for all locomotion activities. PT dressed herself this am.
[2020-01-12 07:51] VITALS: BP 109/59
[2020-01-12] MEDS: ASPIRIN ENTERIC COATED 81 MG TABLET.DR. PO SCH (08:01)
[2020-01-12] MEDS: COLCHICINE 0.6 MG TABLET PO SCH (08:01)
[2020-01-12] MEDS: ALLOPURINOL 300 MG TABLET. PO SCH (08:01)
[2020-01-12] MEDS: DICLOFENAC SODIUM 1% TOPICAL GEL 100GM TUBE. TP SCH ×3 (09:19→20:17)
[2020-01-12] MEDS: predniSONE 10 MG TABLET PO SCH (09:19)
--- NOTE | 2020-01-12 15:17 | NUR ---
SWING BED DOCUMENTATION PT handbook for custodial given to PT. NURSING PROBLEM: Admitted to Med/Surg Unit with weakness, JOANNA and pneuonia. Admitted to SNU for PT/OT, weakness. COGNITIVE/BEHAVIORAL: PT A&O x4.. PT has been calm and cooperative with cares, assessment and medications. PT is very pleasant. PAIN: PT c/o pain in R foot d/t gout exacerbation in great toe. Voltaren gel and prednisone ordered by MD today. Pt reports foot feeling "much better" after application. RESPIRATORY STATUS: RA, CTA. SKIN: CDI. PT with erythema and edema to RT foot, edema to LT foot. BOWEL/BLADDER CONTINENCE: PT has been continent throughout shift. PT is occasionally incontinent in brief or when squatting to toilet per report. LAST BM was 01/11. ADL FUNCTIONAL STATUS: PT has not needed assistance with standing/transferring this shift. Pt has ambulated in hallway and room independently. Pt able to ask for assistance if needed. Pt dressed herself independently this AM and made bed. Pt eats and performs other ADLs independently.
[2020-01-12 19:51] VITALS: BP 119/59
[2020-01-12] MEDS: DIVALPROEX SODIUM 250 MG TABLET.DR. PO SCH (20:18)
[2020-01-12] MEDS: ENOXAPARIN 30 MG/0.3 ML SYRINGE. SQ SCH (20:18)
[2020-01-13] MEDS: LEVOTHYROXINE 50 MCG TABLET PO SCH (06:32)
[2020-01-13] MEDS: ASPIRIN ENTERIC COATED 81 MG TABLET.DR. PO SCH (08:12)
[2020-01-13] MEDS: predniSONE 10 MG TABLET PO SCH (08:12)
[2020-01-13] MEDS: COLCHICINE 0.6 MG TABLET PO SCH (08:12)
[2020-01-13] MEDS: ALLOPURINOL 300 MG TABLET. PO SCH (08:12)
[2020-01-13] MEDS: DICLOFENAC SODIUM 1% TOPICAL GEL 100GM TUBE. TP SCH ×3 (08:13→20:11)
[2020-01-13 08:22] VITALS: BP 123/57
--- NOTE | 2020-01-13 18:16 | NUR ---
Swing Bed Nursing Note Nursing Problem: WEAKNESS AND UNSTEADINESS AFTER RECENT HOSPITALIZATIONS X2 FOR PNEUMONIE Cognitive/Behavioral: A&O X4, PLEASANT AND COOPERATIVE, TALKATIVE Pain: C/O LESS PAIN IN RIGHT FOOT, STATES BETTER NOW THAT VOLTAREN GEL IS BEING APPLIED Respiratory Status: MINIMAL SOA WITH EXERTION WHICH HAS IMPROVED, NO COUGH Skin: INTACT Bowel/Bladder Continence: STRESS INCONT OF BLADDER, CONT BOWEL ADL Functional Status: IMPROVING STRENGTH AND BALANCE, GETS UP OFF BED AND CHAIR INDEP, WALKS WITH WALKER WITH STANDBY, ENDURANCE IMPROVING
[2020-01-13 19:22] VITALS: BP 124/50
[2020-01-13] MEDS: ACETAMINOPHEN 325 MG TABLET PO PRN (19:37)
[2020-01-13] MEDS: ENOXAPARIN 30 MG/0.3 ML SYRINGE. SQ SCH (20:10)
[2020-01-13] MEDS: DIVALPROEX SODIUM 250 MG TABLET.DR. PO SCH (20:11)
--- NOTE | 2020-01-14 04:24 | NUR ---
SWING BED DOCUMENTATION PT handbook for senior living given to PT. NURSING PROBLEM: Admitted to Med/Surg Unit with weakness, JOANNA and pneuonia. COGNITIVE/BEHAVIORAL: PT A&O x4. PT has been calm and cooperative with cares, assessment and medications. Pt is pleasant and interactive with stadd. PAIN: Pt complains of pain to her right foot and a headache. PRN tylenol given. Foot elevated in bed. RESPIRATORY STATUS: RA, CTA. SKIN: CDI. PT with erythema and edema to RT foot, edema to LT foot. BOWEL/BLADDER CONTINENCE: PT has been continent with bouts of incontinence in brief. Last BM 01/12, pt reports that it was loose. ADL FUNCTIONAL STATUS: Pt requires only supervision when ambulating from bed to bath room. Pt able to change brief independently. Pt brushed her teeth independently in the bathroom at HS. Pt requires minimal assistance getting blankets straightened out for bed.
[2020-01-14 06:02] VITALS: BP 138/65
[2020-01-14] MEDS: LEVOTHYROXINE 50 MCG TABLET PO SCH (06:16)
[2020-01-14] MEDS: ACETAMINOPHEN/CODEINE 300/30MG TABLET PO PRN (07:56)
[2020-01-14] MEDS: predniSONE 10 MG TABLET PO SCH (07:56)
[2020-01-14] MEDS: ALLOPURINOL 300 MG TABLET. PO SCH (07:56)
[2020-01-14] MEDS: ASPIRIN ENTERIC COATED 81 MG TABLET.DR. PO SCH (07:56)
[2020-01-14] MEDS: COLCHICINE 0.6 MG TABLET PO SCH (08:01)
[2020-01-14] MEDS: DICLOFENAC SODIUM 1% TOPICAL GEL 100GM TUBE. TP SCH ×4 (08:02→20:39)
--- NOTE | 2020-01-14 11:00 | PN ---
DATE: SUBJECTIVE: The patient resting fairly comfortably. She came in initially for rehab. She had severe pain in that foot of hers and she says the combination of oral steroids and topical agents was ____. The patient otherwise made good progress with the lotion to her foot, diclofenac, and the redness and swelling has decreased to that right foot. OBJECTIVE: VITAL SIGNS: Remain stable, blood pressure 138/65, respiration 18, pulse 76, afebrile. GENERAL: The patient is alert and oriented. LUNGS: Diminished, but clear. CARDIOVASCULAR: Stable. EXTREMITIES: Right foot less swollen and tender. The patient receiving PT, OT and will continue to be monitored. LABORATORY DATA: Hemoglobin slightly low at 9.9 and 30. We will go ahead and continue to monitor her iron levels. IMPRESSION: Pneumonia of unspecified etiology, acute on top of chronic renal failure, dehydration, type 2 diabetes, morbid obesity, gout, [id number] protein malnutrition. PLAN: The patient continued with her PT, OT, rehab and make further evaluation on her as indicated. JESSICA PEOPLES MD DR: KEY/flex JOB#: [id number] / [id number]
--- NOTE | 2020-01-14 16:24 | NUR ---
SWING BED DOCUMENTATION PT HANDBOOK FOR LONG TERM GIVEN TO PT. NURSING PROBLEM: ADMIT TO [facility] WITH WEAKNESS, JOANNA, AND PNEUMONIA COGNITIVE/BEHAVIORAL: PT A&O X4. CALM AND COOPERATIVE WITH ALL CARES PAIN: PT REFUSED VOLTAREN GEL, WAS WORRIED ABOUT HER FOOT GETTING BLISTERS, THIS NURSE EVALUATED FOOT AND DOES NOT SEE ANY BLISTER LIKE ACTIVITY. RESPIRATORY STATUS: RA/CTA SKIN: REDNESS AND SWELLING TO RIGHT FOOT. BOWEL/BLADDER CONTINENCE: PT IS INCONTINENT, WEARS BRIEF. LBM WAS 5/20. ADL FUNCTIONAL STATUS: PT HAS BEEN GETTING UP AND WALKING TO THE REST ROOM INDEPENDENTLY, PT ABLE TO CLEAN HERSELF AFTER RESTROOM USE. PT WAS INDEPENDENT WITH DRESSING THIS AM AND IS ABLE TO DRESS HERSELF. PT IS INDEPENDENT WITH HER MEALS WELL BRUSHING HER TEETH. DEBBI SMART.
[2020-01-14 16:43] VITALS: BP 131/56
[2020-01-14 19:32] VITALS: BP 141/78
[2020-01-14] MEDS: DIVALPROEX SODIUM 250 MG TABLET.DR. PO SCH (20:39)
[2020-01-14] MEDS: ACETAMINOPHEN 325 MG TABLET PO PRN (20:39)
[2020-01-14] MEDS: ENOXAPARIN 30 MG/0.3 ML SYRINGE. SQ SCH (20:40)
--- NOTE | 2020-01-14 20:55 | NUR ---
SWING BED DOCUMENTATION PT handbook for [facility] given to PT. NURSING PROBLEM: Admitted to Med/Surg Unit with weakness, JOANNA and pneuonia. COGNITIVE/BEHAVIORAL: PT A&O x4. PT has been calm and cooperative with cares, assessment and medications. Pt is pleasant and interactive with staff. PAIN: Pt complains of pain to her right foot. Voltaren gel applied and PRN tylenol given. Foot elevated in bed. RESPIRATORY STATUS: RA, CTA. SKIN: CDI. PT with erythema and edema to RT foot, edema to LT foot. BOWEL/BLADDER CONTINENCE: PT has been continent with bouts of incontinence in brief. Last BM 01/13. ADL FUNCTIONAL STATUS: Pt is independent in her room with her walker. Pt able to dress and change brief independently. Pt brushed her teeth independently in the bathroom at HS.
[2020-01-15 06:17] VITALS: BP 135/81
[2020-01-15] MEDS: LEVOTHYROXINE 50 MCG TABLET PO SCH (06:17)
[2020-01-15 08:24] VITALS: BP 135/63
[2020-01-15] MEDS: ASPIRIN ENTERIC COATED 81 MG TABLET.DR. PO SCH (08:39)
[2020-01-15] MEDS: COLCHICINE 0.6 MG TABLET PO SCH (08:39)
[2020-01-15] MEDS: ALLOPURINOL 300 MG TABLET. PO SCH (08:39)
[2020-01-15] MEDS: predniSONE 10 MG TABLET PO SCH (08:39)
[2020-01-15] MEDS: DICLOFENAC SODIUM 1% TOPICAL GEL 100GM TUBE. TP SCH ×3 (08:42→20:04)
[2020-01-15 19:03] VITALS: BP 156/65
[2020-01-15 19:53] LABS: FECAL OB PT NEGATIVE (NEG)
[2020-01-15] MEDS: DIVALPROEX SODIUM 250 MG TABLET.DR. PO SCH (20:04)
[2020-01-15] MEDS: ACETAMINOPHEN 325 MG TABLET PO PRN (20:05)
[2020-01-15] MEDS: ENOXAPARIN 30 MG/0.3 ML SYRINGE. SQ SCH (20:05)
--- NOTE | 2020-01-15 20:31 | NUR ---
SWING BED DOCUMENTATION PT handbook for group home given to PT. NURSING PROBLEM: Admitted to Med/Surg Unit with weakness, JOANNA and pneuonia. COGNITIVE/BEHAVIORAL: PT A&O x4. PT has been calm and cooperative with cares, assessment and medications. Pt is pleasant and interactive with staff. PAIN: Pt complains of mild pain to her right foot. Voltaren gel applied and PRN tylenol given. Foot elevated in bed. RESPIRATORY STATUS: RA, CTA. SKIN: CDI. PT with erythema and edema to RT foot, edema to LT foot. BOWEL/BLADDER CONTINENCE: PT has been continent with bouts of incontinence in brief. Last BM 01/14 - small/soft. ADL FUNCTIONAL STATUS: Pt is independent in her room with her walker. Pt able to dress and change brief independently. Pt independently made bed. Pt brushed her teeth independently in the bathroom at hs.
[2020-01-16] MEDS: LEVOTHYROXINE 50 MCG TABLET PO SCH (06:17)
[2020-01-16] MEDS: COLCHICINE 0.6 MG TABLET PO SCH (07:53)
[2020-01-16] MEDS: ASPIRIN ENTERIC COATED 81 MG TABLET.DR. PO SCH (07:53)
[2020-01-16] MEDS: predniSONE 10 MG TABLET PO SCH (07:53)
[2020-01-16] MEDS: ALLOPURINOL 300 MG TABLET. PO SCH (07:54)
[2020-01-16 07:59] VITALS: BP 128/71
[2020-01-16] MEDS: DICLOFENAC SODIUM 1% TOPICAL GEL 100GM TUBE. TP SCH ×2 (07:59→14:00)
[2020-01-16 19:57] VITALS: BP 149/57
[2020-01-16] MEDS: DIVALPROEX SODIUM 250 MG TABLET.DR. PO SCH (20:09)
[2020-01-16] MEDS: ENOXAPARIN 30 MG/0.3 ML SYRINGE. SQ SCH (20:09)
[2020-01-16] MEDS: DICLOFENAC SODIUM 1% TOPICAL GEL 100GM TUBE. TP PRN (20:13)
[2020-01-16] MEDS: ACETAMINOPHEN 325 MG TABLET PO PRN (22:06)
--- NOTE | 2020-01-16 22:31 | NUR ---
SWING BED DOCUMENTATION PT handbook for nursing home given to PT. NURSING PROBLEM: Admitted to Med/Surg Unit with weakness, JONANA and pneumonia. COGNITIVE/BEHAVIORAL: Pt sitting up in chair, reading book when approached by staff. Pt pleasant and interactive, A/Ox4. Makes needs known. PAIN: Pt complains of mild pain to her right foot with gout flare-up. Voltaren gel applied. Noted to have 3+ pitting edema, assisted to prop foot on pillow while in bed. PRN tylenol also given at approx. 2200 for c/o [place] and continued foot pain. RESPIRATORY STATUS: Lung sounds CTA. Pt sats in upper-90's on RA. Denies cough or SOA. SKIN: Clean, dry, intact. PT with erythema and 3+ edema to RT foot, 2+ edema to LT foot. BOWEL/BLADDER CONTINENCE: PT has been continent with occasional stress incontinence in brief. Reports LBM this morning, 01/15. ADL FUNCTIONAL STATUS: Pt is independent in her room with her walker. Pt readied for HS--toileting, changing into pajamas and brushed teeth without any assistance. Declined snack. Took pills whole without difficulty.
[2020-01-17] MEDS: LEVOTHYROXINE 50 MCG TABLET PO SCH (08:12)
[2020-01-17] MEDS: ALLOPURINOL 300 MG TABLET. PO SCH (08:12)
[2020-01-17] MEDS: COLCHICINE 0.6 MG TABLET PO SCH (08:12)
[2020-01-17] MEDS: predniSONE 10 MG TABLET PO SCH (08:12)
[2020-01-17] MEDS: ASPIRIN ENTERIC COATED 81 MG TABLET.DR. PO SCH (08:12)
[2020-01-17 09:50] VITALS: BP 132/58
--- NOTE | 2020-01-17 18:11 | NUR ---
SWING BED DOCUMENTATION NURSING PROBLEM: Admitted to Med/Surg Unit with weakness, JOANNA and pneumonia. COGNITIVE/BEHAVIORAL: Pt pleasant and interactive, A/Ox4. Makes needs known. PAIN: Pt complains of mild pain to her right foot with gout flare-up. Voltaren gel applied. Noted to have 3+ pitting edema. RESPIRATORY STATUS: Lung sounds CTA. Pt sats in upper-90's on RA. Denies cough or SOA. SKIN: Clean, dry, intact. PT with erythema and 3+ edema to RT foot, 2+ edema to LT foot. BOWEL/BLADDER CONTINENCE: PT has been continent with occasional stress incontinence in brief. Reports LBM this morning 01/16. ADL FUNCTIONAL STATUS: Pt is independent in her room with her walker. Pt showered 01/16 this evening and is sitting up in chair. pt went walking with PCT around the hospital x 2 today approx. 500 feet. Will continue to assess and monitor as needed.
[2020-01-17 20:01] VITALS: BP 142/61
[2020-01-17] MEDS: DIVALPROEX SODIUM 250 MG TABLET.DR. PO SCH (20:36)
[2020-01-17] MEDS: ENOXAPARIN 30 MG/0.3 ML SYRINGE. SQ SCH (20:36)
[2020-01-17] MEDS: ACETAMINOPHEN 325 MG TABLET PO PRN (20:42)
[2020-01-17] MEDS: DICLOFENAC SODIUM 1% TOPICAL GEL 100GM TUBE. TP PRN (20:43)
--- NOTE | 2020-01-18 04:40 | NUR ---
SWING BED DOCUMENTATION NURSING PROBLEM: Admitted to Med/Surg Unit with weakness, JOANNA and pneumonia. COGNITIVE/BEHAVIORAL: Pt pleasant and interactive, A/Ox4. Advocates for needs. PAIN: Pt complains of mild pain to her right foot with gout flare-up. Voltaren gel applied. Noted to have 3+ pitting edema. RESPIRATORY STATUS: Lung CTA. Pt sats in upper-90's on RA. Denies cough or SOA. SKIN: Clean, dry, intact. PT with erythema and 3+ edema to RT foot, 2+ edema to LT foot. BOWEL/BLADDER CONTINENCE: PT has been continent with occasional stress incontinence in brief. Reports LBM 01/16. ADL FUNCTIONAL STATUS: Pt is independent in her room with her walker. Pt showered 01/16. Pt able to sleep comfortably throughout the night. Pt states she is very excited to go home.
[2020-01-18] MEDS: LEVOTHYROXINE 50 MCG TABLET PO SCH (06:01)
[2020-01-18 07:39] VITALS: BP 133/66
[2020-01-18] MEDS: ALLOPURINOL 300 MG TABLET. PO SCH (08:05)
[2020-01-18] MEDS: COLCHICINE 0.6 MG TABLET PO SCH (08:05)
[2020-01-18] MEDS: predniSONE 10 MG TABLET PO SCH (08:05)
[2020-01-18] MEDS: ASPIRIN ENTERIC COATED 81 MG TABLET.DR. PO SCH (08:05)
--- NOTE | 2020-01-18 10:10 | NUR ---
Swing Bed Nursing Note NURSING PROBLEM: Admitted to Med/Surg Unit with weakness, JOANNA and pneumonia. COGNITIVE/BEHAVIORAL: Pt pleasant and interactive, A/Ox4. Advocates for needs. PAIN: Pt complains of mild pain to her right foot with gout flare-up. Voltaren gel applied. Noted to have 3+ pitting edema. RESPIRATORY STATUS: Lung CTA. Pt sats in upper-90's on RA. Denies cough or SOA. SKIN: Clean, dry, intact. PT with erythema and 3+ edema to RT foot, 2+ edema to LT foot. BOWEL/BLADDER CONTINENCE: PT has been continent with occasional stress incontinence in brief. Reports LBM 01/16. ADL FUNCTIONAL STATUS: Pt is independent in her room with her walker and performs all ADLs independently. Pt showered 01/16. Pt able to sleep comfortably throughout the night. Pt states she is very excited to go home.
--- NOTE | 2020-01-18 10:39 | NUR ---
Pt discharged home with . VSS. NAD. Pt ambulated off unit, all belongings accounted for. No PIV to remove. Discharge instructions and education discussed with patient. Questions answered. No falls or injury reported.
== END 2020-01-18 10:40 | disposition home or self-care (01) | DRG 947 ==
LOC: 1 SOUTH → LND 08:04 → 1 SOUTH 01-14 08:48 → LND 01-14 16:23
PROVIDERS: ADMIT Family Medicine; ATTEND Family Medicine
DX: R53.1 Weakness (principal); E43 Unspecified severe protein-calorie malnutrition; J18.9 Pneumonia, unspecified organism; D69.6 Thrombocytopenia, unspecified; M10.9 Gout, unspecified; E86.0 Dehydration; E11.22 Type 2 diabetes mellitus with diabetic chronic kidney disease; E66.01 Morbid (severe) obesity due to excess calories; N18.9 Chronic kidney disease, unspecified; Z68.31 Body mass index [BMI] 31.0-31.9, adult
CPT/HCPCS: 36415; 73630; 80048; 82274; 83540; 83550; 84550; 85007; 85025; 86140; J1650; J2920; J3490; J7512; 97110; 97116; 97530; 97535

== ENCOUNTER → 2020-05-05 | Outpatient (CLI) | payer MEDICARE, BC ==
[2020-05-05 16:15] LABS: BASO % 1 % (0-3); EOS # 0.1 x10^3/uL (0.0-0.7); EOS % 1 % (0-3); HEMATOCRIT 43.2 % (36.0-47.0); HEMOGLOBIN 14.2 g/dL (12.0-15.5); LYMPH # 1.6 x10^3/uL (1.0-4.8); LYMPH % 21 % (24-48); MEAN CORPUSCULAR HEMOGLOBIN 28 pg (25-35); MEAN CORPUSCULAR HGB CONC 33 g/dL (31-37); MEAN CORPUSCULAR VOLUME 85 fL (79-100); MONO # 0.4 x10^3/uL (0.0-1.1); MONO % 5 % (0-9); NEUT # 5.5 x10^3uL (1.8-7.7); NEUT % 73 % (31-73); PLATELET COUNT 146 x10^3/uL (140-400); RED BLOOD COUNT 5.09 x10^6/uL (3.50-5.40); RED CELL DISTRIBUTION WIDTH 15.7 % (11.5-14.5); WHITE BLOOD COUNT 7.6 x10^3/uL (4.0-11.0)
[2020-05-05 16:25] LABS: ALBUMIN 3.4 g/dL (3.4-5.0); ALBUMIN/GLOBULIN RATIO 0.9 (1.0-1.7); CALCIUM 9.3 mg/dL (8.5-10.1); CREATININE 1.3 mg/dL (0.6-1.0); GFR 40.2; POTASSIUM 3.9 mmol/L (3.5-5.1); TOTAL BILIRUBIN 0.5 mg/dL (0.2-1.0); TOTAL PROTEIN 7.1 g/dL (6.4-8.2)
[2020-05-05 16:28] LABS: COLOR,URINE STRAW
[2020-05-05 16:29] LABS: BILIRUBIN,URINE NEG (NEG); CLARITY,URINE CLEAR; GLUCOSE,URINE NEG (NEG); NITRITE,URINE NEG (NEG); UROBILINOGEN,URINE 0.2 mg/dL (0.2 mg/dL)
[2020-05-05 16:40] LABS: BACTERIA,URINE FEW /HPF (0-FEW); RBC,URINE 0 /HPF (0-2)
[2020-05-06 02:07] LABS: HEMOGLOBIN A1C 6.1 % (4.8-5.6)
[2020-05-06 13:26] LABS: FREE T4 1.3 ng/dL (0.76-1.46); THYROID STIM HORMONE (TSH) 0.448 uIU/mL (0.358-3.740)
== END | disposition home or self-care (01) ==
LOC: LAB 15:33
PROVIDERS: ATTEND Family Medicine
DX: E11.65 Type 2 diabetes mellitus with hyperglycemia (principal); E03.9 Hypothyroidism, unspecified; I10 Essential (primary) hypertension; R94.5 Abnormal results of liver function studies; E78.49 Other hyperlipidemia; Z79.899 Other long term (current) drug therapy
CPT/HCPCS: 36415; 80053; 80061; 81001; 83036; 84439; 84443; 85025; 87086

== ENCOUNTER → 2020-05-10 | Outpatient (CLI) | payer MEDICARE, BC ==
--- NOTE | 2020-05-13 18:29 | RAD ---
DATE: 05/10/2020 9:10 AM EXAM: DIGITAL SCREEN BILAT W/CAD HISTORY: Screening COMPARISON: 02/03/2019 Bilateral full field craniocaudal and mediolateral oblique images were obtained using digital technique. This study was interpreted with the benefit of Computerized Aided Detection (CAD). FINDINGS: Breast Density: FATTY The Breast Parenchyma is primarily fatty replaced. Breast parenchyma level density A. No suspicious masses, microcalcifications or architectural distortion is present to suggest malignancy in either breast. The visualized axillae are unremarkable. IMPRESSION: No mammographic evidence of malignancy. BI-RADS CATEGORY: 1 NEGATIVE RECOMMENDED FOLLOW-UP: 12M 12 MONTH FOLLOW-UP Annual screening mammography is recommended, unless clinically indicated sooner based on symptoms or change in physical exam. PQRS compliance statement: Patient information was entered into a reminder system with a target due date for the next mammogram. Mammography is a sensitive method for finding small breast cancers, but it does not detect them all and is not a substitute for careful clinical examination. A negative mammogram does not negate a clinically suspicious finding and should not result in delay in biopsying a clinically suspicious abnormality. "Our facility is accredited by the [employer] Mammography Program."
== END | disposition home or self-care (01) ==
LOC: MAMMO 09:03
PROVIDERS: ATTEND Obstetrics & Gynecology
DX: Z12.31 Encounter for screening mammogram for malignant neoplasm of breast (principal)
CPT/HCPCS: 77067